=== PATIENT | female | born 1940 | race Caucasian/White ===

== ENCOUNTER → 2016-09-11 | Outpatient (CLI) | payer MEDICARE, OTHER ==
[~2016-09-11] MED LIST: AML5T PO; DIGO0.1262 PO; FUR40T PO; FUROSEMIDE 100 MG/10ML VIAL IV ONE; FUROSEMIDE 40 MG/4 ML VIAL ONE; HYDR-2601 PO; LEV50T PO; METO-158 PO; POT20T PO; POTASSIUM CHL 20 Meq TABLET PO ONE; RIV20T PO
[2016-09-11 10:55] VITALS: BP 144/48
[2016-09-11 16:36] LABS: Basophils # (auto) 0 uL; Basophils % (auto) 0.7 % (0.0-2.0); Eosinophils # (auto) 0.1 uL; Eosinophils % (auto) 1.5 % (0.0-7.0); Hematocrit 48.7 % (36.0-46.0); Lymphocytes # (auto) 1.4 uL; Mean Corpuscular Hemoglobin 33.2 pg (28.0-32.0); Mean Corpuscular Hgb Conc. 32.8 g/dL (32.0-36.0); Mean Corpuscular Volume 101.3 fL (80.0-100.0); Mean Platelet Volume 9.8 fL (7.4-10.4); Monocytes # (auto) 0.4 uL; Monocytes % (auto) 11.6 % (0.0-12.0); Neutrophils # (auto) 1.9 uL; Neutrophils % (auto) 49.2 % (37.0-80.0); Platelet Count (auto) 188 10^3/uL (140-450); Red Cell Distribution Width 15.4 % (11.6-16.0); White Blood Cell 3.8 10^3/uL (4.4-10.8)
[2016-09-11 16:54] LABS: BUN/Creatinine Ratio 20.6; Calcium 9.2 mg/dL (8.5-10.1); Potassium 3.5 mmol/L (3.5-5.1)
[2016-09-11 16:56] LABS: Bilirubin, Total 1.8 mg/dL (0.2-1.0); Total Protein 7.7 g/dL (6.4-8.2)
== END | disposition home or self-care (01) ==
LOC: CHF HDHVI 10:58
PROVIDERS: ATTEND Internal Medicine Cardiovascular Disease
DX: I10 Essential (primary) hypertension (principal); D64.9 Anemia, unspecified; R89.9 Unspecified abnormal finding in specimens from other organs, systems and tissues
CPT/HCPCS: 36415; 80053; 85025; 87205; 96374; G0463

== ENCOUNTER → 2016-09-17 | Outpatient (CLI) | payer MEDICARE ==
[~2016-09-17] MED LIST changes: -FUROSEMIDE 100 MG/10ML VIAL IV ONE; -FUROSEMIDE 40 MG/4 ML VIAL ONE; -POTASSIUM CHL 20 Meq TABLET PO ONE
== END | disposition home or self-care (01) ==
LOC: HDHVI->DVH 09:38
PROVIDERS: ATTEND Internal Medicine Cardiovascular Disease
DX: I73.9 Peripheral vascular disease, unspecified (principal); Z95.9 Presence of cardiac and vascular implant and graft, unspecified
CPT/HCPCS: 93926

== ENCOUNTER → 2016-09-17 | Outpatient (CLI) | payer MEDICARE | END | disposition home or self-care (01) | LOC: Rad HDHVI 10:33 | PROVIDERS: ATTEND Internal Medicine Cardiovascular Disease | DX: I51.7 Cardiomegaly (principal); I31.3 Pericardial effusion (noninflammatory); I25.10 Atherosclerotic heart disease of native coronary artery without angina pectoris; I10 Essential (primary) hypertension; J98.4 Other disorders of lung; Z95.0 Presence of cardiac pacemaker; Z86.718 Personal history of other venous thrombosis and embolism | CPT/HCPCS: 93306 ==

== ENCOUNTER 2016-09-19 16:43 | Observation (INO) | payer MEDICARE ==
[~2016-09-19] VITALS: Ht 167.6 cm; Wt 59.4 kg
[2016-09-19 17:46] LABS: Basophils # (auto) 0 uL; Basophils % (auto) 0.8 % (0.0-2.0); Eosinophils # (auto) 0 uL; Eosinophils % (auto) 0.8 % (0.0-7.0); Hematocrit 47.9 % (36.0-46.0); Hemoglobin 15.7 g/dL (12.2-16.2); Lymphocytes # (auto) 1.3 uL; Lymphocytes % (auto) 28.2 % (10.0-50.0); Mean Corpuscular Hemoglobin 32.9 pg (28.0-32.0); Mean Corpuscular Hgb Conc. 32.8 g/dL (32.0-36.0); Mean Corpuscular Volume 100.2 fL (80.0-100.0); Monocytes # (auto) 0.6 uL; Monocytes % (auto) 13.6 % (0.0-12.0); Neutrophils # (auto) 2.6 uL; Neutrophils % (auto) 56.6 % (37.0-80.0); Platelet Count (auto) 209 10^3/uL (140-450); White Blood Cell 4.5 10^3/uL (4.4-10.8)
[2016-09-19 18:07] LABS: Albumin 3.7 g/dL (3.4-5.0); BUN/Creatinine Ratio 18.4; Bilirubin, Total 1.8 mg/dL (0.2-1.0); Calcium 8.9 mg/dL (8.5-10.1); Magnesium 2.2 mg/dL (1.6-2.6); Potassium 3.6 mmol/L (3.5-5.1); Total Protein 7.3 g/dL (6.4-8.2)
[2016-09-19 18:17] LABS: INR 1.3 (0.9-1.15)
[2016-09-19 18:30] VITALS: BP 146/85
[2016-09-19] MEDS ORDERED: LIDOCAINE HCL 2 %PF INJ 10ML AMP IJ ONE (19:15)
[2016-09-19] MEDS ORDERED: LIDOCAINE 1% HCL (LOCAL ANESTH.) INJ 20ML MDV ONE (19:25)
[2016-09-19] MEDS ORDERED: LIDOCAINE 1% HCL (LOCAL ANESTH.) INJ 20ML MDV IJ ONE (19:30)
== END 2016-09-19 20:45 | disposition home or self-care (01) | DRG 301 ==
LOC: ER 16:44 → OVERFLOW 17:22 → ER 20:45
PROVIDERS: ADMIT Family Medicine; ATTEND Family Medicine
DX: I83.91 Asymptomatic varicose veins of right lower extremity (principal); I10 Essential (primary) hypertension; I48.91 Unspecified atrial fibrillation
CPT/HCPCS: 36415; 80053; 83735; 85025; 85610; 85730; 99285; G0378; J2001

== ENCOUNTER → 2016-10-21 | Outpatient (CLI) | payer MEDICARE ==
[2016-10-21 11:00] VITALS: BP 147/89
== END | disposition home or self-care (01) ==
LOC: CHF HDHVI 12:13
PROVIDERS: ATTEND Internal Medicine Cardiovascular Disease
DX: R89.9 Unspecified abnormal finding in specimens from other organs, systems and tissues (principal)
CPT/HCPCS: 87205; G0463

== ENCOUNTER → 2016-10-31 | Outpatient (CLI) | payer MEDICARE ==
[2016-10-31 10:00] VITALS: BP 133/82
[2016-10-31 11:30] VITALS: BP 130/88
== END | disposition home or self-care (01) ==
LOC: CHF HDHVI 09:54
PROVIDERS: ATTEND Internal Medicine Cardiovascular Disease
DX: I87.2 Venous insufficiency (chronic) (peripheral) (principal); I50.9 Heart failure, unspecified; I25.10 Atherosclerotic heart disease of native coronary artery without angina pectoris; I70.213 Atherosclerosis of native arteries of extremities with intermittent claudication, bilateral legs; L97.819 Non-pressure chronic ulcer of other part of right lower leg with unspecified severity
CPT/HCPCS: G0463

== ENCOUNTER → 2016-11-07 | Outpatient (CLI) | payer MEDICARE ==
[~2016-11-07] MED LIST changes: +FUROSEMIDE 40 MG/4 ML VIAL IV ONE; +FUROSEMIDE 40 MG/4 ML VIAL ONE; +KETOROLAC TROMETH 60MG/2ML VIAL IM ONE; +POTASSIUM CHL 10 Meq TABLET PO ONE; +POTASSIUM CHL 20 Meq TABLET PO ONE
[2016-11-07 10:00] VITALS: BP 156/98
[2016-11-07 16:30] LABS: BUN/Creatinine Ratio 23.1; Calcium 9.1 mg/dL (8.5-10.1); Magnesium 2.1 mg/dL (1.6-2.6); Potassium 3.8 mmol/L (3.5-5.1)
[2016-11-07 16:48] LABS: Basophils # (auto) 0 uL; Basophils % (auto) 0.7 % (0.0-2.0); Eosinophils # (auto) 0.1 uL; Hemoglobin 16.9 g/dL (12.2-16.2); Lymphocytes % (auto) 19.7 % (10.0-50.0); Mean Corpuscular Hemoglobin 33.4 pg (28.0-32.0); Mean Corpuscular Hgb Conc. 33.8 g/dL (32.0-36.0); Mean Corpuscular Volume 98.7 fL (80.0-100.0); Monocytes # (auto) 0.6 uL; Monocytes % (auto) 11.9 % (0.0-12.0); Neutrophils # (auto) 3.5 uL; Neutrophils % (auto) 66.7 % (37.0-80.0); Platelet Count (auto) 259 10^3/uL (140-450); Red Cell Distribution Width 14.5 % (11.6-16.0); SUSPECT VIEW TRANSMISSION; White Blood Cell 5.3 10^3/uL (4.4-10.8)
== END | disposition home or self-care (01) ==
LOC: CHF HDHVI 10:04
PROVIDERS: ATTEND Internal Medicine Cardiovascular Disease
DX: I10 Essential (primary) hypertension (principal); D64.9 Anemia, unspecified; E83.42 Hypomagnesemia; R89.9 Unspecified abnormal finding in specimens from other organs, systems and tissues
CPT/HCPCS: 36415; 80048; 83735; 85025; 87205; 96372; 96374; G0463; J1885

== ENCOUNTER → 2016-11-08 | Outpatient (CLI) | payer MEDICARE ==
[~2016-11-08] MED LIST changes: -FUROSEMIDE 40 MG/4 ML VIAL IV ONE; -FUROSEMIDE 40 MG/4 ML VIAL ONE; -KETOROLAC TROMETH 60MG/2ML VIAL IM ONE; -POTASSIUM CHL 10 Meq TABLET PO ONE; -POTASSIUM CHL 20 Meq TABLET PO ONE
[2016-11-08 12:00] VITALS: BP 144/98
[2016-11-08 13:10] VITALS: BP 144/98
== END | disposition home or self-care (01) ==
LOC: CHF HDHVI 11:18
PROVIDERS: ATTEND Internal Medicine Cardiovascular Disease
DX: I50.9 Heart failure, unspecified (principal); L97.919 Non-pressure chronic ulcer of unspecified part of right lower leg with unspecified severity
CPT/HCPCS: G0463

== ENCOUNTER → 2016-11-11 | Outpatient (CLI) | payer MEDICARE ==
[~2016-11-11] MED LIST changes: +KETOROLAC TROMETH 60MG/2ML VIAL IM ONE; +VANCOMYCIN 1GM/250ML D5W 250 ML IV ONE
[2016-11-11 11:00] VITALS: BP 146/83
[2016-11-11 12:59] LABS: BUN/Creatinine Ratio 22.6; Calcium 9.1 mg/dL (8.5-10.1)
[2016-11-11 13:01] LABS: Partial Thromboplastin Time 28.2 sec (22.64-33.71)
[2016-11-11 13:04] LABS: Basophils # (auto) 0 uL; Basophils % (auto) 0.5 % (0.0-2.0); Eosinophils # (auto) 0 uL; Eosinophils % (auto) 0.5 % (0.0-7.0); Hematocrit 47.3 % (36.0-46.0); Hemoglobin 15.7 g/dL (12.2-16.2); Mean Corpuscular Hemoglobin 32.5 pg (28.0-32.0); Mean Corpuscular Hgb Conc. 33.1 g/dL (32.0-36.0); Mean Corpuscular Volume 97.9 fL (80.0-100.0); Mean Platelet Volume 9.5 fL (7.4-10.4); Monocytes # (auto) 0.7 uL; Monocytes % (auto) 12.2 % (0.0-12.0); Neutrophils # (auto) 4.3 uL; Neutrophils % (auto) 69.8 % (37.0-80.0); Platelet Count (auto) 262 10^3/uL (140-450); Red Cell Distribution Width 14.4 % (11.6-16.0); White Blood Cell 6.1 10^3/uL (4.4-10.8)
[2016-11-11 14:09] LABS: INR 1.02 (0.9-1.15); Prothrombin Time 11.1 sec (9.37-12.3)
== END | disposition home or self-care (01) ==
LOC: Rad HDHVI 08:37
PROVIDERS: ATTEND Internal Medicine Cardiovascular Disease
DX: I10 Essential (primary) hypertension (principal); D64.9 Anemia, unspecified; R79.1 Abnormal coagulation profile; Z01.812 Encounter for preprocedural laboratory examination
CPT/HCPCS: 36415; 71020; 80048; 85025; 85610; 85730; 93005; 96365; G0463; J1885

== ENCOUNTER 2016-11-14 07:01 | Day surgery (SDC) | payer MEDICARE ==
[~2016-11-14] VITALS: Ht 167.6 cm; Wt 57.2 kg
[~2016-11-14 07:01] MED LIST changes: -KETOROLAC TROMETH 60MG/2ML VIAL IM ONE; -VANCOMYCIN 1GM/250ML D5W 250 ML IV ONE
[2016-11-14] MEDS ORDERED: VANCOMYCIN PER PHARMACY 0 MG IV ONE (07:45)
[2016-11-14] MEDS ORDERED: VANCOMYCIN HCL 1000 MG VL IR ONE (07:45)
[2016-11-14] MEDS ORDERED: ceFAZolin 1GM/50ML D5W 50 ML IV ONE (07:45)
[2016-11-14] MEDS ORDERED: fentaNYL CITRATE 100 MCG/2 ML VL ONE (07:55)
[2016-11-14] MEDS ORDERED: LIDOCAINE 2%HCL (LOCAL ANESTH.) INJ 20ML MDV ONE ×2 (07:55→08:38)
[2016-11-14] MEDS ORDERED: MIDAZOLAM HCL 1MG/1ML-2 ML VIAL ONE (07:55)
[2016-11-14] MEDS ORDERED: VANCOMYCIN 1GM/250ML D5W 250 ML IV ONE (09:00)
== END 2016-11-14 11:35 | disposition home or self-care (01) ==
LOC: CATH 07:01
PROVIDERS: ATTEND Internal Medicine Cardiovascular Disease
DX: I48.91 Unspecified atrial fibrillation (principal); J44.9 Chronic obstructive pulmonary disease, unspecified; I73.9 Peripheral vascular disease, unspecified; F10.99 Alcohol use, unspecified with unspecified alcohol-induced disorder; F17.200 Nicotine dependence, unspecified, uncomplicated; B19.10 Unspecified viral hepatitis B without hepatic coma; Z12.4 Encounter for screening for malignant neoplasm of cervix
CPT/HCPCS: 33228; J0690; J2250

== ENCOUNTER 2016-11-15 16:31 | Emergency (ER) | payer MEDICARE ==
[~2016-11-15] VITALS: Ht 167.6 cm; Wt 57.2 kg
[2016-11-15 17:11] LABS: Basophils # (auto) 0 uL; Basophils % (auto) 0.4 % (0.0-2.0); Eosinophils # (auto) 0 uL; Eosinophils % (auto) 0.1 % (0.0-7.0); Hematocrit 46.4 % (36.0-46.0); Hemoglobin 15.4 g/dL (12.2-16.2); Lymphocytes # (auto) 0.6 uL; Lymphocytes % (auto) 9.4 % (10.0-50.0); Mean Corpuscular Hemoglobin 32.2 pg (28.0-32.0); Mean Corpuscular Hgb Conc. 33.3 g/dL (32.0-36.0); Mean Corpuscular Volume 96.7 fL (80.0-100.0); Mean Platelet Volume 8.3 fL (7.4-10.4); Monocytes # (auto) 0.6 uL; Monocytes % (auto) 8.7 % (0.0-12.0); Neutrophils # (auto) 5.6 uL; Neutrophils % (auto) 81.4 % (37.0-80.0); Platelet Count (auto) 280 10^3/uL (140-450); Red Cell Distribution Width 14.3 % (11.6-16.0); White Blood Cell 6.9 10^3/uL (4.4-10.8)
[2016-11-15 17:37] LABS: Albumin 3.2 g/dL (3.4-5.0); Alkaline Phosphatase 106 U/L (45-117); Anion Gap 9 (5-15); Aspartate Aminotransferase 18 U/L (15-37); BUN/Creatinine Ratio 28.8; Bilirubin, Total 0.9 mg/dL (0.2-1.0); Blood Urea Nitrogen 23 mg/dL (7-18); Calcium 8.7 mg/dL (8.5-10.1); Carbon Dioxide 25 mmol/L (21-32); Chloride 103 mmol/L (98-107); GFR African American 90 mL/min; GFR Non-African American 74 mL/min; Glucose 106 mg/dL (74-106); Potassium 3.7 mmol/L (3.5-5.1); Sodium 137 mmol/L (136-145); Total Protein 7.7 g/dL (6.4-8.2)
[2016-11-15] MEDS ORDERED: CLOPIDOGREL BISULFATE 75 MG TAB PO ONE (20:00)
[2016-11-15 20:19] VITALS: BP 120/76
== END 2016-11-15 20:25 | disposition home or self-care (01) ==
LOC: ER 16:35
DX: I73.9 Peripheral vascular disease, unspecified (principal); I48.2 Chronic atrial fibrillation; I10 Essential (primary) hypertension; E07.89 Other specified disorders of thyroid; Z95.0 Presence of cardiac pacemaker; Z79.01 Long term (current) use of anticoagulants; Z98.61 Coronary angioplasty status
CPT/HCPCS: 36415; 70450; 80053; 84484; 85025; 85379; 93005; 93971

== ENCOUNTER 2016-11-21 08:10 | Day surgery (SDC) | payer MEDICARE ==
[~2016-11-21] VITALS: Ht 167.6 cm; Wt 57.2 kg
[2016-11-21] MEDS ORDERED: LIDOCAINE 2%HCL (LOCAL ANESTH.) INJ 20ML MDV ONE (08:55)
[2016-11-21] MEDS ORDERED: IOHEXOL 350 MG/ML 100ML IJ ONE (08:55)
[2016-11-21] MEDS ORDERED: MIDAZOLAM HCL 1MG/1ML-2 ML VIAL ONE (09:14)
[2016-11-21] MEDS ORDERED: fentaNYL CITRATE 100 MCG/2 ML VL ONE (09:14)
[2016-11-21] MEDS ORDERED: ANGIOMAX 250 MG VIAL IV ONE (09:14)
[2016-11-21] MEDS ORDERED: SODIUM CHL 0.9% 0 ML ONE (09:14)
[2016-11-21] MEDS ORDERED: SODIUM CHLORIDE 0.9% 1,000 ML IV SCH (10:19)
[2016-11-21] MEDS ORDERED: ACETAMINOPHEN 500 MG TAB PO PRN (10:30)
[2016-11-21] MEDS ORDERED: HYDROcodone-ACET 5/325MG TAB PO PRN (10:30)
== END 2016-11-21 11:35 | disposition home or self-care (01) ==
LOC: CATH 08:10
PROVIDERS: ATTEND Internal Medicine Cardiovascular Disease
DX: I48.91 Unspecified atrial fibrillation (principal); J44.9 Chronic obstructive pulmonary disease, unspecified; F17.200 Nicotine dependence, unspecified, uncomplicated; F10.99 Alcohol use, unspecified with unspecified alcohol-induced disorder
CPT/HCPCS: 36247; 75716; C1760; C1769; C1887; C1894; J1644; J2250; J3010; J7030; Q9967; 99152

== ENCOUNTER → 2016-11-26 | Outpatient (CLI) | payer MEDICARE ==
[2016-11-26 11:00] VITALS: BP 168/72
[2016-11-26 12:10] VITALS: BP 151/76
== END | disposition home or self-care (01) ==
LOC: CHF HDHVI 10:30
PROVIDERS: ATTEND Internal Medicine Cardiovascular Disease
DX: I83.018 Varicose veins of right lower extremity with ulcer other part of lower leg (principal)
CPT/HCPCS: G0463

== ENCOUNTER → 2016-12-04 | Outpatient (CLI) | payer MEDICARE ==
[2016-12-04 10:30] VITALS: BP 144/88
[2016-12-04 11:15] VITALS: BP 142/93
== END | disposition home or self-care (01) ==
LOC: CHF HDHVI 10:33
PROVIDERS: ATTEND Internal Medicine Cardiovascular Disease
DX: S81.801A Unspecified open wound, right lower leg, initial encounter (principal); I11.0 Hypertensive heart disease with heart failure; I50.9 Heart failure, unspecified; I73.9 Peripheral vascular disease, unspecified; I25.10 Atherosclerotic heart disease of native coronary artery without angina pectoris; X58.XXXA Exposure to other specified factors, initial encounter; Y93.89 Activity, other specified; Y92.89 Other specified places as the place of occurrence of the external cause; Y99.8 Other external cause status
CPT/HCPCS: G0463

== ENCOUNTER → 2016-12-12 | Outpatient (CLI) | payer MEDICARE ==
[~2016-12-12] MED LIST changes: +KETOROLAC TROMETH 60MG/2ML VIAL IM ONE
[2016-12-12 10:15] VITALS: BP 125/79
[2016-12-12 12:00] VITALS: BP 122/71
[2016-12-12 16:41] LABS: BUN/Creatinine Ratio 29.4; Potassium 4.4 mmol/L (3.5-5.1)
== END | disposition home or self-care (01) ==
LOC: CHF HDHVI 10:26
PROVIDERS: ATTEND Internal Medicine Cardiovascular Disease
DX: I73.9 Peripheral vascular disease, unspecified (principal); I83.002 Varicose veins of unspecified lower extremity with ulcer of calf; I10 Essential (primary) hypertension
CPT/HCPCS: 36415; 80048; 96372; G0463; J1885

== ENCOUNTER → 2016-12-19 | Outpatient (CLI) | payer MEDICARE ==
[2016-12-19 10:30] VITALS: BP 143/89
[2016-12-19 12:20] VITALS: BP 159/94
== END | disposition home or self-care (01) ==
LOC: CHF HDHVI 10:29
PROVIDERS: ATTEND Internal Medicine Cardiovascular Disease
DX: I83.018 Varicose veins of right lower extremity with ulcer other part of lower leg (principal); R89.9 Unspecified abnormal finding in specimens from other organs, systems and tissues
CPT/HCPCS: 87205; 96372; G0463; J1885

== ENCOUNTER → 2016-12-25 | Outpatient (CLI) | payer MEDICARE ==
[2016-12-25 14:05] VITALS: BP 140/98
[2016-12-25 16:00] VITALS: BP 142/89
== END | disposition home or self-care (01) ==
LOC: CHF HDHVI 14:01
PROVIDERS: ATTEND Internal Medicine Cardiovascular Disease
DX: L97.919 Non-pressure chronic ulcer of unspecified part of right lower leg with unspecified severity (principal); M79.604 Pain in right leg
CPT/HCPCS: 96372; G0463; J1885

== ENCOUNTER → 2016-12-27 | Outpatient (CLI) | payer MEDICARE ==
[2016-12-27 10:15] VITALS: BP 163/97
[2016-12-27 11:35] VITALS: BP 170/95
== END | disposition home or self-care (01) ==
LOC: CHF HDHVI 10:17
PROVIDERS: ATTEND Internal Medicine Cardiovascular Disease
DX: I50.9 Heart failure, unspecified (principal); I83.019 Varicose veins of right lower extremity with ulcer of unspecified site; L97.919 Non-pressure chronic ulcer of unspecified part of right lower leg with unspecified severity
CPT/HCPCS: 96372; G0463; J1885

== ENCOUNTER → 2016-12-30 | Outpatient (CLI) | payer MEDICARE ==
[~2016-12-30] MED LIST changes: -KETOROLAC TROMETH 60MG/2ML VIAL IM ONE
[2016-12-30 10:00] VITALS: BP 128/83
[2016-12-30 10:55] VITALS: BP 128/83
== END | disposition home or self-care (01) ==
LOC: CHF HDHVI 10:03
PROVIDERS: ATTEND Internal Medicine Cardiovascular Disease
DX: I73.9 Peripheral vascular disease, unspecified (principal); I83.018 Varicose veins of right lower extremity with ulcer other part of lower leg; L97.819 Non-pressure chronic ulcer of other part of right lower leg with unspecified severity
CPT/HCPCS: G0463

== ENCOUNTER → 2017-01-01 | Outpatient (CLI) | payer MEDICARE ==
[2017-01-01 11:15] VITALS: BP 116/81
[2017-01-01 12:20] VITALS: BP 144/88
[2017-01-02 09:01] VITALS: BP 116/81
== END | disposition home or self-care (01) ==
LOC: CHF HDHVI 11:17
PROVIDERS: ATTEND Internal Medicine Cardiovascular Disease
DX: I83.019 Varicose veins of right lower extremity with ulcer of unspecified site (principal); L97.919 Non-pressure chronic ulcer of unspecified part of right lower leg with unspecified severity
CPT/HCPCS: G0463

== ENCOUNTER → 2017-04-29 | Outpatient (CLI) | payer MEDICARE ==
[2017-04-29 10:45] VITALS: BP 170/104
[2017-04-29 11:15] VITALS: BP 173/109
[2017-04-29 14:55] VITALS: BP 170/105
== END | disposition home or self-care (01) ==
LOC: CHF HDHVI 10:28
PROVIDERS: ATTEND Internal Medicine Cardiovascular Disease
DX: I73.9 Peripheral vascular disease, unspecified (principal)
CPT/HCPCS: G0463

== ENCOUNTER → 2017-05-13 | Outpatient (CLI) | payer MEDICARE ==
[~2017-05-13] MED LIST changes: +METOPROLOL TARTRATE 25 MG TAB ONE; +METOPROLOL TARTRATE 25 MG TAB PO ONE
[2017-05-13 11:15] VITALS: BP 171/112
[2017-05-13 16:07] VITALS: BP 160/98
== END | disposition home or self-care (01) ==
LOC: Rad HDHVI 10:05
PROVIDERS: ATTEND Internal Medicine Cardiovascular Disease
DX: I73.9 Peripheral vascular disease, unspecified (principal); I83.018 Varicose veins of right lower extremity with ulcer other part of lower leg; I83.028 Varicose veins of left lower extremity with ulcer other part of lower leg; L97.819 Non-pressure chronic ulcer of other part of right lower leg with unspecified severity; L97.829 Non-pressure chronic ulcer of other part of left lower leg with unspecified severity
CPT/HCPCS: 93926; G0463

== ENCOUNTER → 2017-09-10 | Outpatient (CLI) | payer MEDICARE ==
[~2017-09-10] MED LIST changes: +CYANOCOBALAMIN (B-12) 1000 MCG/1 ML VIAL IM ONE; +CYANOCOBALAMIN (B-12) 1000 MCG/1 ML VIAL ONE; +KETOROLAC TROMETH 60MG/2ML VIAL IM ONE; -METOPROLOL TARTRATE 25 MG TAB ONE; -METOPROLOL TARTRATE 25 MG TAB PO ONE
[2017-09-10 11:00] VITALS: BP 132/94
[2017-09-10 11:55] VITALS: BP 138/89
== END | disposition home or self-care (01) ==
LOC: CHF HDHVI 10:41
PROVIDERS: ATTEND Internal Medicine Cardiovascular Disease
DX: R89.9 Unspecified abnormal finding in specimens from other organs, systems and tissues (principal)
CPT/HCPCS: 87205; 96372; G0463; J1885; J3420; 87077; 87186

== ENCOUNTER 2017-09-15 13:38 | Emergency (ER) | payer MEDICARE ==
[~2017-09-15] VITALS: Ht 167.6 cm; Wt 59.0 kg
[~2017-09-15 13:38] MED LIST changes: -CYANOCOBALAMIN (B-12) 1000 MCG/1 ML VIAL IM ONE; -CYANOCOBALAMIN (B-12) 1000 MCG/1 ML VIAL ONE; -KETOROLAC TROMETH 60MG/2ML VIAL IM ONE
[2017-09-15 14:00] VITALS: BP 184/109
[2017-09-15 16:01] LABS: Albumin 3.6 g/dL (3.4-5.0); BUN/Creatinine Ratio 23.2; Bilirubin, Total 2.2 mg/dL (0.2-1.0); Calcium 8.9 mg/dL (8.5-10.1); Potassium 3.9 mmol/L (3.5-5.1); Total Protein 7.3 g/dL (6.4-8.2)
[2017-09-15 17:10] LABS: Urine Bacteria NONE SEEN /hpf (None Seen); Urine Blood Negative /uL (Negative); Urine Mucus FEW (None Seen); Urine Specific Gravity 1.019 (1.001-1.035); Urine WBC 1 /hpf (0 - 5)
== END 2017-09-15 16:30 | disposition home or self-care (01) ==
LOC: ER 13:38
DX: I83.893 Varicose veins of bilateral lower extremities with other complications (principal); I48.91 Unspecified atrial fibrillation; I10 Essential (primary) hypertension
CPT/HCPCS: 36415; 80053; 81001; 93970

== ENCOUNTER → 2017-09-17 | Outpatient (CLI) | payer MEDICARE ==
[~2017-09-17] MED LIST changes: +KETOROLAC TROMETH 60MG/2ML VIAL IM ONE; +cefTAZidime 1 GM in SODIUM CHL 0.9% 50 ML IV ONE
[2017-09-17 09:30] VITALS: BP 106/52
[2017-09-17 10:15] VITALS: BP 112/53
== END | disposition home or self-care (01) ==
LOC: CHF HDHVI 10:01
PROVIDERS: ATTEND Internal Medicine Cardiovascular Disease
DX: I83.013 Varicose veins of right lower extremity with ulcer of ankle (principal); L97.319 Non-pressure chronic ulcer of right ankle with unspecified severity
CPT/HCPCS: 96365; 96372; G0463; J0713; J1642; J1885

== ENCOUNTER → 2017-09-18 | Outpatient (CLI) | payer MEDICARE ==
[~2017-09-18] MED LIST changes: +CEFTAZIDIME IV ONE; +D5W IV ONE; -KETOROLAC TROMETH 60MG/2ML VIAL IM ONE; +cefTAZidime 1GM/50ML D5W 50 ML IV ONE
[2017-09-18 10:40] VITALS: BP 148/100
[2017-09-18 11:22] VITALS: BP 139/102
== END | disposition home or self-care (01) ==
LOC: CHF HDHVI 10:38
PROVIDERS: ATTEND Internal Medicine Cardiovascular Disease
DX: L08.89 Other specified local infections of the skin and subcutaneous tissue (principal)
CPT/HCPCS: 96365; G0463; J0713; J1642

== ENCOUNTER → 2017-09-22 | Outpatient (CLI) | payer MEDICARE ==
[~2017-09-22] MED LIST changes: -CEFTAZIDIME IV ONE; -D5W IV ONE; +KETOROLAC TROMETH 60MG/2ML VIAL IM ONE; -cefTAZidime 1 GM in SODIUM CHL 0.9% 50 ML IV ONE; -cefTAZidime 1GM/50ML D5W 50 ML IV ONE
[2017-09-22 12:20] VITALS: BP 179/104
[2017-09-22 13:55] VITALS: BP 164/103
== END | disposition home or self-care (01) ==
LOC: CHF HDHVI 12:25
PROVIDERS: ATTEND Internal Medicine Cardiovascular Disease
DX: I83.023 Varicose veins of left lower extremity with ulcer of ankle (principal)
CPT/HCPCS: 96372; G0463; J1885; J0713

== ENCOUNTER → 2017-09-29 | Outpatient (CLI) | payer MEDICARE ==
[~2017-09-29] MED LIST changes: +CYANOCOBALAMIN (B-12) 1000 MCG/1 ML VIAL IM ONE
[2017-09-29 13:05] VITALS: BP 144/61
[2017-09-29 14:05] VITALS: BP 146/91
== END | disposition home or self-care (01) ==
LOC: CHF HDHVI 13:04
PROVIDERS: ATTEND Internal Medicine Cardiovascular Disease
DX: M25.562 Pain in left knee (principal); R89.9 Unspecified abnormal finding in specimens from other organs, systems and tissues; M79.89 Other specified soft tissue disorders; I70.202 Unspecified atherosclerosis of native arteries of extremities, left leg; M81.0 Age-related osteoporosis without current pathological fracture; M21.6X2 Other acquired deformities of left foot
CPT/HCPCS: 73562; 73610; 87205; 96372; G0463; J1885

== ENCOUNTER → 2017-09-30 | Outpatient (CLI) | payer MEDICARE ==
[~2017-09-30] MED LIST changes: -CYANOCOBALAMIN (B-12) 1000 MCG/1 ML VIAL IM ONE; -KETOROLAC TROMETH 60MG/2ML VIAL IM ONE
== END | disposition home or self-care (01) ==
LOC: Rad HDHVI 12:59
PROVIDERS: ATTEND Internal Medicine Cardiovascular Disease
DX: I08.1 Rheumatic disorders of both mitral and tricuspid valves (principal); I11.0 Hypertensive heart disease with heart failure; I50.22 Chronic systolic (congestive) heart failure; Z79.01 Long term (current) use of anticoagulants
CPT/HCPCS: 93306

== ENCOUNTER → 2017-10-06 | Outpatient (CLI) | payer MEDICARE ==
[~2017-10-06] MED LIST changes: +KETOROLAC TROMETH 60MG/2ML VIAL IM ONE
[2017-10-06 12:00] VITALS: BP 135/82
[2017-10-06 13:45] VITALS: BP 165/94
== END | disposition home or self-care (01) ==
LOC: CHF HDHVI 11:59
PROVIDERS: ATTEND Internal Medicine Cardiovascular Disease
DX: L89.529 Pressure ulcer of left ankle, unspecified stage (principal); I10 Essential (primary) hypertension; I11.0 Hypertensive heart disease with heart failure; I50.22 Chronic systolic (congestive) heart failure; Z79.01 Long term (current) use of anticoagulants
CPT/HCPCS: 96372; G0463; J1885

== ENCOUNTER → 2017-10-08 | Outpatient (CLI) | payer MEDICARE ==
[~2017-10-08] VITALS: Ht 167.6 cm; Wt 58.5 kg
[~2017-10-08] MED LIST changes: +ADENOSINE 49 MG in GIVE UN-DILUTED 0 ML IV ONE; +ADENOSINE 90 MG/30 ML INJ IV ONE; +cloNIDine HCL 0.1 MG TAB ONE; +cloNIDine HCL 0.1 MG TAB PO ONE
[2017-10-08 12:40] VITALS: BP 137/104
[2017-10-08 13:30] VITALS: BP 142/96
== END | disposition home or self-care (01) ==
LOC: Rad HDHVI 11:45
PROVIDERS: ATTEND Internal Medicine Cardiovascular Disease
DX: I11.0 Hypertensive heart disease with heart failure (principal); I50.22 Chronic systolic (congestive) heart failure; I73.9 Peripheral vascular disease, unspecified; L97.919 Non-pressure chronic ulcer of unspecified part of right lower leg with unspecified severity; Z79.01 Long term (current) use of anticoagulants
CPT/HCPCS: 78452; 93005; 96372; 96374; 96375; G0463; J0153; J1885

== ENCOUNTER → 2017-10-13 | Outpatient (CLI) | payer MEDICARE ==
[~2017-10-13] MED LIST changes: -ADENOSINE 49 MG in GIVE UN-DILUTED 0 ML IV ONE; -ADENOSINE 90 MG/30 ML INJ IV ONE; -KETOROLAC TROMETH 60MG/2ML VIAL IM ONE; -cloNIDine HCL 0.1 MG TAB ONE; -cloNIDine HCL 0.1 MG TAB PO ONE
[2017-10-13 12:15] VITALS: BP 151/100
[2017-10-13 13:05] VITALS: BP 144/92
== END | disposition home or self-care (01) ==
LOC: CHF HDHVI 13:22
PROVIDERS: ATTEND Internal Medicine Cardiovascular Disease
DX: I11.0 Hypertensive heart disease with heart failure (principal); I50.9 Heart failure, unspecified; L97.519 Non-pressure chronic ulcer of other part of right foot with unspecified severity; R60.0 Localized edema; J44.9 Chronic obstructive pulmonary disease, unspecified; Z79.01 Long term (current) use of anticoagulants
CPT/HCPCS: G0463

== ENCOUNTER → 2017-10-20 | Outpatient (CLI) | payer MEDICARE ==
[~2017-10-20] MED LIST changes: +KETOROLAC TROMETH 60MG/2ML VIAL IM ONE
[2017-10-20 12:00] VITALS: BP 163/104
[2017-10-20 12:55] VITALS: BP 141/104
== END | disposition home or self-care (01) ==
LOC: CHF HDHVI 12:04
PROVIDERS: ATTEND Internal Medicine Cardiovascular Disease
DX: L97.319 Non-pressure chronic ulcer of right ankle with unspecified severity (principal); I25.10 Atherosclerotic heart disease of native coronary artery without angina pectoris; J44.9 Chronic obstructive pulmonary disease, unspecified; I11.0 Hypertensive heart disease with heart failure; I50.22 Chronic systolic (congestive) heart failure; Z79.01 Long term (current) use of anticoagulants
CPT/HCPCS: 96372; G0463; J1885

== ENCOUNTER → 2017-11-03 | Outpatient (CLI) | payer MEDICARE ==
[~2017-11-03] MED LIST changes: -KETOROLAC TROMETH 60MG/2ML VIAL IM ONE
[2017-11-03 12:30] VITALS: BP 149/98
[2017-11-03 13:44] VITALS: BP 148/97
== END | disposition home or self-care (01) ==
LOC: CHF HDHVI 13:19
PROVIDERS: ATTEND Internal Medicine Cardiovascular Disease
DX: I73.9 Peripheral vascular disease, unspecified (principal); I25.10 Atherosclerotic heart disease of native coronary artery without angina pectoris; I11.0 Hypertensive heart disease with heart failure; I50.22 Chronic systolic (congestive) heart failure; G89.29 Other chronic pain; J44.9 Chronic obstructive pulmonary disease, unspecified; Z79.01 Long term (current) use of anticoagulants
CPT/HCPCS: G0463

== ENCOUNTER → 2017-12-01 | Outpatient (CLI) | payer MEDICARE ==
[~2017-12-01] MED LIST changes: +KETOROLAC TROMETH 60MG/2ML VIAL IM ONE
[2017-12-01 11:30] VITALS: BP 158/111
[2017-12-01 12:28] VITALS: BP 164/105
== END | disposition home or self-care (01) ==
LOC: CHF HDHVI 11:35
PROVIDERS: ATTEND Internal Medicine Cardiovascular Disease
DX: L97.319 Non-pressure chronic ulcer of right ankle with unspecified severity (principal); M25.571 Pain in right ankle and joints of right foot; R60.0 Localized edema; I11.0 Hypertensive heart disease with heart failure; I50.22 Chronic systolic (congestive) heart failure; I25.10 Atherosclerotic heart disease of native coronary artery without angina pectoris; G89.29 Other chronic pain; Z79.01 Long term (current) use of anticoagulants; Z86.73 Personal history of transient ischemic attack (TIA), and cerebral infarction without residual deficits
CPT/HCPCS: 96372; G0463; J1885

== ENCOUNTER → 2017-12-08 | Outpatient (CLI) | payer MEDICARE ==
[~2017-12-08] MED LIST changes: -KETOROLAC TROMETH 60MG/2ML VIAL IM ONE
[2017-12-08 12:15] VITALS: BP 150/97
[2017-12-08 12:40] VITALS: BP 154/97
== END | disposition home or self-care (01) ==
LOC: CHF HDHVI 12:27
PROVIDERS: ATTEND Internal Medicine Cardiovascular Disease
DX: R89.9 Unspecified abnormal finding in specimens from other organs, systems and tissues (principal)
CPT/HCPCS: 87205; G0463

== ENCOUNTER → 2017-12-15 | Outpatient (CLI) | payer MEDICARE ==
[2017-12-15 12:25] VITALS: BP 154/115
[2017-12-15 17:26] VITALS: BP 170/102
== END | disposition home or self-care (01) ==
LOC: CHF HDHVI 12:15
PROVIDERS: ATTEND Internal Medicine Cardiovascular Disease
DX: L97.319 Non-pressure chronic ulcer of right ankle with unspecified severity (principal); R60.0 Localized edema; I25.10 Atherosclerotic heart disease of native coronary artery without angina pectoris; I11.0 Hypertensive heart disease with heart failure; I50.22 Chronic systolic (congestive) heart failure; J44.9 Chronic obstructive pulmonary disease, unspecified; E03.9 Hypothyroidism, unspecified
CPT/HCPCS: G0463

== ENCOUNTER → 2017-12-22 | Outpatient (CLI) | payer MEDICARE ==
[2017-12-22 12:05] VITALS: BP 148/95
[2017-12-22 12:35] VITALS: BP 149/90
== END | disposition home or self-care (01) ==
LOC: CHF HDHVI 12:01
PROVIDERS: ATTEND Internal Medicine Cardiovascular Disease
DX: L97.319 Non-pressure chronic ulcer of right ankle with unspecified severity (principal); I11.0 Hypertensive heart disease with heart failure; I50.22 Chronic systolic (congestive) heart failure; R60.0 Localized edema; J44.9 Chronic obstructive pulmonary disease, unspecified; Z79.01 Long term (current) use of anticoagulants
CPT/HCPCS: G0463

== ENCOUNTER → 2018-01-26 | Outpatient (CLI) | payer MEDICARE ==
[2018-01-26 11:30] VITALS: BP 162/103
[2018-01-26 12:06] VITALS: BP 145/90
== END | disposition home or self-care (01) ==
LOC: CHF HDHVI 11:27
PROVIDERS: ATTEND Internal Medicine Cardiovascular Disease
DX: I83.013 Varicose veins of right lower extremity with ulcer of ankle (principal); I10 Essential (primary) hypertension; I48.91 Unspecified atrial fibrillation; E03.9 Hypothyroidism, unspecified; Z79.899 Other long term (current) drug therapy
CPT/HCPCS: G0463

== ENCOUNTER → 2018-02-09 | Outpatient (CLI) | payer MEDICARE ==
[~2018-02-09] MED LIST changes: +KETOROLAC TROMETH 60MG/2ML VIAL IM ONE
[2018-02-09 11:50] VITALS: BP 152/86
[2018-02-09 12:38] VITALS: BP 138/93
== END | disposition home or self-care (01) ==
LOC: CHF HDHVI 11:42
PROVIDERS: ATTEND Internal Medicine Cardiovascular Disease
DX: L98.499 Non-pressure chronic ulcer of skin of other sites with unspecified severity (principal); M25.571 Pain in right ankle and joints of right foot; I11.0 Hypertensive heart disease with heart failure; I50.22 Chronic systolic (congestive) heart failure; I25.10 Atherosclerotic heart disease of native coronary artery without angina pectoris; J44.9 Chronic obstructive pulmonary disease, unspecified; R60.0 Localized edema; Z79.01 Long term (current) use of anticoagulants; Z79.899 Other long term (current) drug therapy
CPT/HCPCS: 96372; G0463; J1885

== ENCOUNTER → 2018-02-16 | Outpatient (CLI) | payer MEDICARE ==
[~2018-02-16] MED LIST changes: -KETOROLAC TROMETH 60MG/2ML VIAL IM ONE
[2018-02-16 11:55] VITALS: BP 152/93
[2018-02-16 12:25] VITALS: BP 147/89
== END | disposition home or self-care (01) ==
LOC: CHF HDHVI 11:54
PROVIDERS: ATTEND Internal Medicine Cardiovascular Disease
DX: I73.9 Peripheral vascular disease, unspecified (principal); I10 Essential (primary) hypertension; I48.91 Unspecified atrial fibrillation
CPT/HCPCS: G0463

== ENCOUNTER → 2018-03-02 | Outpatient (CLI) | payer MEDICARE ==
[~2018-03-02] VITALS: Ht 30.5 cm; Wt 0.5 kg
[~2018-03-02] MED LIST changes: +VANCOMYCIN 1GM/250ML 250 ML IV ONE
[2018-03-02 13:15] VITALS: BP 129/91
== END | disposition home or self-care (01) ==
LOC: CHF HDHVI 11:05
PROVIDERS: ATTEND Internal Medicine Cardiovascular Disease
DX: I83.013 Varicose veins of right lower extremity with ulcer of ankle (principal); L97.311 Non-pressure chronic ulcer of right ankle limited to breakdown of skin; E03.9 Hypothyroidism, unspecified; I11.0 Hypertensive heart disease with heart failure; I50.22 Chronic systolic (congestive) heart failure; I25.10 Atherosclerotic heart disease of native coronary artery without angina pectoris; I73.9 Peripheral vascular disease, unspecified; I48.91 Unspecified atrial fibrillation; J44.9 Chronic obstructive pulmonary disease, unspecified; Z79.01 Long term (current) use of anticoagulants; Z79.899 Other long term (current) drug therapy
CPT/HCPCS: 96365; G0463; J3370

== ENCOUNTER → 2018-03-30 | Outpatient (CLI) | payer MEDICARE ==
[~2018-03-30] MED LIST changes: +FURO40TA4 PO; +KETOROLAC TROMETH 60MG/2ML VIAL IM ONE; +POTA20TA53 PO; -VANCOMYCIN 1GM/250ML 250 ML IV ONE
[2018-03-30 11:45] VITALS: BP 163/104
[2018-03-30 12:20] VITALS: BP 140/96
== END | disposition home or self-care (01) ==
LOC: Rad HDHVI 11:55
PROVIDERS: ATTEND Internal Medicine Cardiovascular Disease
DX: D64.9 Anemia, unspecified (principal); L97.311 Non-pressure chronic ulcer of right ankle limited to breakdown of skin; E03.9 Hypothyroidism, unspecified; I48.91 Unspecified atrial fibrillation; I25.10 Atherosclerotic heart disease of native coronary artery without angina pectoris; I11.0 Hypertensive heart disease with heart failure; I50.22 Chronic systolic (congestive) heart failure; I73.9 Peripheral vascular disease, unspecified; Z79.899 Other long term (current) drug therapy
CPT/HCPCS: 96372; G0463; J1885

== ENCOUNTER 2018-04-06 13:40 | Inpatient (IN) | payer MEDICARE ==
[~2018-04-06] VITALS: Ht 167.6 cm; Wt 70.0 kg
[~2018-04-06 13:40] MED LIST changes: -FURO40TA4 PO; -KETOROLAC TROMETH 60MG/2ML VIAL IM ONE; -POTA20TA53 PO
[2018-04-06] MEDS ORDERED: DOBUTamine 1000MCG/ML 250 ML IV SCH ×2 (16:00)
[2018-04-06 16:30] VITALS: BP 82/59
[2018-04-06] MEDS: SODIUM CHLORIDE 0.9% 1,000 ML IV SCH (16:30)
[2018-04-06] MEDS ORDERED: FURO40TA4 PO (17:17)
[2018-04-06] MEDS ORDERED: POTA20TA53 PO (17:17)
[2018-04-06] MEDS: DOBUTamine 1000MCG/ML 250 ML IV SCH (18:25)
[2018-04-06] MEDS: RIVAROXABAN 20 MG TAB PO SCH (18:26)
[2018-04-06 18:34] LABS: Urine Bacteria NONE SEEN /hpf (None Seen); Urine Blood Negative /uL (Negative); Urine Specific Gravity 1.015 (1.001-1.035); Urine WBC 2 /hpf (0 - 5)
[2018-04-06] MEDS ORDERED: PIPERACILLIN-TAZOB 2.25GM 50 ML IV ONE (18:45)
[2018-04-06 21:37] VITALS: BP 116/68
[2018-04-06] MEDS: METOPROLOL SUCCINATE XL 50 MG TAB PO SCH (21:46)
[2018-04-06] MEDS: PIPERACILLIN-TAZO 4.5GM 100 ML IV SCH (21:47)
[2018-04-06] MEDS: HYDROcodone-ACET 10/325MG TAB PO PRN (21:47)
[2018-04-06] MEDS ORDERED: PIPERACILLIN-TAZO 4.5GM 100 ML IV SCH (22:00)
[2018-04-07] MEDS ORDERED: PIPERACILLIN-TAZOB 2.25GM 50 ML IV SCH
[2018-04-07 05:00] VITALS: BP 135/72
[2018-04-07] MEDS: PIPERACILLIN-TAZO 4.5GM 100 ML IV SCH ×3 (05:51→21:54)
[2018-04-07 06:17] LABS: Basophils # (auto) 0 uL; Monocytes # (auto) 0.9 uL; Nucleated Red Blood Cells % 0.1 %; Platelet Count (auto) 91 10^3/uL (140-450); Red Cell Distribution Width 14.9 % (11.8-14.3)
[2018-04-07 06:20] LABS: Eosinophils # (auto) 0.1 uL; Eosinophils % (auto) 0.5 % (0.0-7.0); Hematocrit 48.9 % (36.0-46.0); Hemoglobin 16.8 g/dL (12.2-16.2); Lymphocytes # (auto) 0.5 uL; Lymphocytes % (auto) 4.6 % (10.0-50.0); Mean Corpuscular Hemoglobin 34.3 pg (28.0-32.0); Mean Corpuscular Hgb Conc. 34.3 g/dL (32.0-36.0); Monocytes % (auto) 9.2 % (0.0-12.0); Neutrophils # (auto) 8.6 uL; Neutrophils % (auto) 85.7 % (37.0-80.0); Red Blood Cells 4.89 10^6/uL (4.0-5.20); White Blood Cell 10.1 10^3/uL (4.4-10.8)
[2018-04-07 06:40] LABS: Calcium 7.8 mg/dL (8.5-10.1); Potassium 4.3 mmol/L (3.5-5.1)
[2018-04-07 06:42] LABS: BUN/Creatinine Ratio 54.8
[2018-04-07] MEDS: LEVOTHYROXINE SODIUM 50 MCG TAB PO SCH (06:43)
[2018-04-07] MEDS: DOBUTamine 1000MCG/ML 250 ML IV SCH ×2 (06:47→20:15)
[2018-04-07 09:00] VITALS: BP 128/56
[2018-04-07] MEDS: METOPROLOL SUCCINATE XL 50 MG TAB PO SCH ×2 (10:30→21:54)
[2018-04-07] MEDS: DIGOXIN 0.125 MG TAB PO SCH (10:30)
[2018-04-07] MEDS: HYDROcodone-ACET 10/325MG TAB PO PRN ×2 (10:31→16:38)
[2018-04-07] MEDS: SODIUM CHLORIDE 0.9% 1,000 ML IV SCH (12:00)
[2018-04-07 13:00] VITALS: BP 129/70
[2018-04-07] MEDS: RIVAROXABAN 20 MG TAB PO SCH (17:11)
[2018-04-07 17:22] VITALS: BP 96/71
[2018-04-07 22:00] VITALS: BP 94/72
[2018-04-07] MEDS ORDERED: HALOPERIDOL LACTATE 5 MG/ML INJ VIAL IM ONE (23:30)
[2018-04-08] MEDS ORDERED: PIPERACILLIN-TAZO 4.5GM 100 ML IV ONE (03:12)
[2018-04-08 05:00] VITALS: BP 114/68
[2018-04-08] MEDS: PIPERACILLIN-TAZO 4.5GM 100 ML IV SCH ×3 (05:39→21:45)
[2018-04-08] MEDS: LEVOTHYROXINE SODIUM 50 MCG TAB PO SCH (06:33)
[2018-04-08 07:44] LABS: Urine Bacteria MOD /hpf (None Seen); Urine Blood 3+ /uL (Negative); Urine WBC 408 /hpf (0 - 5)
[2018-04-08] MEDS: SODIUM CHLORIDE 0.9% 1,000 ML IV SCH (08:00)
[2018-04-08 08:10] LABS: Basophils # (auto) 0 uL; Basophils % (auto) 0.1 % (0.0-2.0); Eosinophils # (auto) 0 uL; Eosinophils % (auto) 0.4 % (0.0-7.0); Hematocrit 47.6 % (36.0-46.0); Hemoglobin 15.8 g/dL (12.2-16.2); Lymphocytes # (auto) 0.5 uL; Lymphocytes % (auto) 4.5 % (10.0-50.0); Mean Corpuscular Hemoglobin 33.1 pg (28.0-32.0); Mean Corpuscular Hgb Conc. 33.2 g/dL (32.0-36.0); Mean Corpuscular Volume 99.7 fL (80.0-100.0); Monocytes # (auto) 0.9 uL; Monocytes % (auto) 8.3 % (0.0-12.0); Neutrophils % (auto) 86.7 % (37.0-80.0); Nucleated Red Blood Cells % 0.1 %; Platelet Count (auto) 101 10^3/uL (140-450); Red Blood Cells 4.78 10^6/uL (4.0-5.20); Red Cell Distribution Width 14.9 % (11.8-14.3); White Blood Cell 10.4 10^3/uL (4.4-10.8)
[2018-04-08 08:35] LABS: Albumin 2.3 g/dL (3.4-5.0); Calcium 7.8 mg/dL (8.5-10.1); Potassium 4.5 mmol/L (3.5-5.1)
[2018-04-08 08:39] LABS: BUN/Creatinine Ratio 43.5; Bilirubin, Total 2.7 mg/dL (0.2-1.0); Total Protein 5.7 g/dL (6.4-8.2)
[2018-04-08 09:00] VITALS: BP 116/72
[2018-04-08] MEDS: DIGOXIN 0.125 MG TAB PO SCH (10:31)
[2018-04-08] MEDS: METOPROLOL SUCCINATE XL 50 MG TAB PO SCH ×2 (10:31→21:45)
[2018-04-08] MEDS: DOBUTamine 1000MCG/ML 250 ML IV SCH (10:34)
[2018-04-08 13:00] VITALS: BP 131/59
[2018-04-08] MEDS: HYDROcodone-ACET 10/325MG TAB PO PRN (13:13)
[2018-04-08 16:53] VITALS: BP 94/63
[2018-04-08] MEDS: RIVAROXABAN 20 MG TAB PO SCH (18:00)
[2018-04-08 20:00] VITALS: BP 108/67
[2018-04-08 22:00] VITALS: BP 144/95
[2018-04-09] MEDS: DOBUTamine 1000MCG/ML 250 ML IV SCH ×2 (01:19→16:09)
[2018-04-09] MEDS: SODIUM CHLORIDE 0.9% 1,000 ML IV SCH (02:58)
[2018-04-09 05:00] VITALS: BP 137/74
[2018-04-09] MEDS: LEVOTHYROXINE SODIUM 50 MCG TAB PO SCH (06:34)
[2018-04-09] MEDS: PIPERACILLIN-TAZO 4.5GM 100 ML IV SCH ×3 (06:34→21:22)
[2018-04-09 09:00] VITALS: BP 139/75
[2018-04-09] MEDS: MULTIPLE VITAMINS W/ MINERALS TAB PO SCH ×2 (11:20→21:22)
[2018-04-09] MEDS: ASCORBIC ACID 500 MG TAB PO SCH ×2 (11:20→21:23)
[2018-04-09] MEDS: DIGOXIN 0.125 MG TAB PO SCH (11:21)
[2018-04-09] MEDS: METOPROLOL SUCCINATE XL 50 MG TAB PO SCH ×2 (11:22→21:23)
[2018-04-09] MEDS: HYDROcodone-ACET 10/325MG TAB PO PRN ×2 (12:29→21:23)
[2018-04-09 13:00] VITALS: BP 127/82
[2018-04-09 16:51] VITALS: BP 124/78
[2018-04-09] MEDS: RIVAROXABAN 20 MG TAB PO SCH (18:00)
[2018-04-09 22:00] VITALS: BP 137/87
[2018-04-10] MEDS: SODIUM CHLORIDE 0.9% 1,000 ML IV SCH ×2 (04:43→20:00)
[2018-04-10] MEDS: DOBUTamine 1000MCG/ML 250 ML IV SCH ×2 (04:44→18:22)
[2018-04-10] MEDS: HYDROcodone-ACET 10/325MG TAB PO PRN (04:46)
[2018-04-10 05:00] VITALS: BP 132/81
[2018-04-10] MEDS: PIPERACILLIN-TAZO 4.5GM 100 ML IV SCH ×3 (06:30→21:37)
[2018-04-10] MEDS: LEVOTHYROXINE SODIUM 50 MCG TAB PO SCH (06:30)
[2018-04-10 09:00] VITALS: BP 124/82
[2018-04-10] MEDS: MULTIPLE VITAMINS W/ MINERALS TAB PO SCH ×2 (09:34→21:36)
[2018-04-10] MEDS: METOPROLOL SUCCINATE XL 50 MG TAB PO SCH ×2 (09:34→21:37)
[2018-04-10] MEDS: ASCORBIC ACID 500 MG TAB PO SCH ×2 (09:34→21:36)
[2018-04-10] MEDS: DIGOXIN 0.125 MG TAB PO SCH (09:34)
[2018-04-10 13:00] VITALS: BP 134/93
[2018-04-10 16:10] VITALS: BP 110/66
[2018-04-10] MEDS: RIVAROXABAN 20 MG TAB PO SCH (17:36)
[2018-04-10 22:00] VITALS: BP 156/93
[2018-04-11 04:49] VITALS: BP 158/97
[2018-04-11] MEDS: LEVOTHYROXINE SODIUM 50 MCG TAB PO SCH (06:05)
[2018-04-11] MEDS: PIPERACILLIN-TAZO 4.5GM 100 ML IV SCH ×3 (06:05→22:10)
[2018-04-11] MEDS: DOBUTamine 1000MCG/ML 250 ML IV SCH ×2 (08:05→22:18)
[2018-04-11 09:00] VITALS: BP 137/83
[2018-04-11] MEDS: METOPROLOL SUCCINATE XL 50 MG TAB PO SCH ×2 (09:37→22:10)
[2018-04-11] MEDS: ASCORBIC ACID 500 MG TAB PO SCH ×2 (09:38→22:09)
[2018-04-11] MEDS: MULTIPLE VITAMINS W/ MINERALS TAB PO SCH ×2 (09:38→22:09)
[2018-04-11] MEDS: DIGOXIN 0.125 MG TAB PO SCH (09:39)
[2018-04-11 13:00] VITALS: BP 148/87
[2018-04-11 13:06] LABS: Basophils # (auto) 0 uL; Basophils % (auto) 0.4 % (0.0-2.0); Eosinophils # (auto) 0 uL; Eosinophils % (auto) 0.8 % (0.0-7.0); Hematocrit 46.4 % (36.0-46.0); Hemoglobin 15.4 g/dL (12.2-16.2); Lymphocytes # (auto) 0.4 uL; Lymphocytes % (auto) 7.6 % (10.0-50.0); Mean Corpuscular Hgb Conc. 33.3 g/dL (32.0-36.0); Mean Corpuscular Volume 99.3 fL (80.0-100.0); Monocytes # (auto) 0.5 uL; Monocytes % (auto) 8.1 % (0.0-12.0); Neutrophils # (auto) 4.7 uL; Neutrophils % (auto) 83.1 % (37.0-80.0); Nucleated Red Blood Cells % 0.1 %; Platelet Count (auto) 193 10^3/uL (140-450); Red Blood Cells 4.68 10^6/uL (4.0-5.20); White Blood Cell 5.6 10^3/uL (4.4-10.8)
[2018-04-11 13:25] LABS: Calcium 7.3 mg/dL (8.5-10.1); Potassium 3.9 mmol/L (3.5-5.1)
[2018-04-11 13:35] LABS: Bilirubin, Total 1.6 mg/dL (0.2-1.0); Total Protein 5.9 g/dL (6.4-8.2)
[2018-04-11 17:00] VITALS: BP 145/85
[2018-04-11] MEDS: SODIUM CHLORIDE 0.9% 1,000 ML IV SCH (17:12)
[2018-04-11] MEDS: RIVAROXABAN 20 MG TAB PO SCH (17:51)
[2018-04-11 22:00] VITALS: BP 158/88
[2018-04-12 05:00] VITALS: BP 140/89
[2018-04-12] MEDS: PIPERACILLIN-TAZO 4.5GM 100 ML IV SCH ×3 (06:53→22:04)
[2018-04-12] MEDS: LEVOTHYROXINE SODIUM 50 MCG TAB PO SCH (06:53)
[2018-04-12] MEDS: DIGOXIN 0.125 MG TAB PO SCH (09:09)
[2018-04-12] MEDS: ASCORBIC ACID 500 MG TAB PO SCH ×2 (09:09→22:05)
[2018-04-12] MEDS: METOPROLOL SUCCINATE XL 50 MG TAB PO SCH ×2 (09:09→22:05)
[2018-04-12] MEDS: MULTIPLE VITAMINS W/ MINERALS TAB PO SCH ×2 (09:09→22:05)
[2018-04-12 09:39] VITALS: BP 141/91
[2018-04-12] MEDS: DOBUTamine 1000MCG/ML 250 ML IV SCH (11:57)
[2018-04-12] MEDS: SODIUM CHLORIDE 0.9% 1,000 ML IV SCH (11:57)
[2018-04-12 13:23] VITALS: BP 156/66
[2018-04-12 16:50] VITALS: BP 156/83
[2018-04-12] MEDS: RIVAROXABAN 20 MG TAB PO SCH (18:04)
[2018-04-12 22:00] VITALS: BP 145/105
[2018-04-13] MEDS: DOBUTamine 1000MCG/ML 250 ML IV SCH ×2 (02:05→15:44)
[2018-04-13 04:57] VITALS: BP 155/110
[2018-04-13] MEDS: PIPERACILLIN-TAZO 4.5GM 100 ML IV SCH ×3 (06:09→22:45)
[2018-04-13] MEDS: LEVOTHYROXINE SODIUM 50 MCG TAB PO SCH (06:13)
[2018-04-13 09:22] VITALS: BP 148/80
[2018-04-13] MEDS: SODIUM CHLORIDE 0.9% 1,000 ML IV SCH (10:50)
[2018-04-13] MEDS: MULTIPLE VITAMINS W/ MINERALS TAB PO SCH ×2 (10:51→22:45)
[2018-04-13] MEDS: DIGOXIN 0.125 MG TAB PO SCH (10:51)
[2018-04-13] MEDS: METOPROLOL SUCCINATE XL 50 MG TAB PO SCH ×2 (10:51→22:46)
[2018-04-13] MEDS: ASCORBIC ACID 500 MG TAB PO SCH ×2 (10:55→22:46)
[2018-04-13 11:50] VITALS: BP 149/88
[2018-04-13] MEDS: HYDROcodone-ACET 10/325MG TAB PO PRN ×2 (13:15→19:04)
[2018-04-13 16:32] VITALS: BP 139/92
[2018-04-13] MEDS: RIVAROXABAN 20 MG TAB PO SCH (19:04)
[2018-04-13 22:00] VITALS: BP 133/78
[2018-04-14 05:00] VITALS: BP 145/105
[2018-04-14] MEDS: SODIUM CHLORIDE 0.9% 1,000 ML IV SCH (05:23)
[2018-04-14] MEDS: DOBUTamine 1000MCG/ML 250 ML IV SCH ×2 (05:23→18:06)
[2018-04-14] MEDS: PIPERACILLIN-TAZO 4.5GM 100 ML IV SCH ×3 (06:29→22:00)
[2018-04-14] MEDS: LEVOTHYROXINE SODIUM 50 MCG TAB PO SCH (06:29)
[2018-04-14 09:00] VITALS: BP 146/85
[2018-04-14] MEDS: DIGOXIN 0.125 MG TAB PO SCH (09:40)
[2018-04-14] MEDS: METOPROLOL SUCCINATE XL 50 MG TAB PO SCH ×2 (09:40→22:47)
[2018-04-14] MEDS: ASCORBIC ACID 500 MG TAB PO SCH ×2 (09:40→22:48)
[2018-04-14] MEDS: MULTIPLE VITAMINS W/ MINERALS TAB PO SCH ×2 (09:40→22:47)
[2018-04-14] MEDS: Ensure Enlive Strawberry 8oz Bottle PO SCH ×2 (12:15→17:57)
[2018-04-14 13:00] VITALS: BP 139/78
[2018-04-14 17:28] VITALS: BP 135/98
[2018-04-14] MEDS: Pro-Stat SF 30ml Vanilla PO SCH (17:57)
[2018-04-14] MEDS: RIVAROXABAN 20 MG TAB PO SCH (18:05)
[2018-04-14 21:57] VITALS: BP 145/90
[2018-04-14] MEDS: HYDROcodone-ACET 10/325MG TAB PO PRN (22:48)
[2018-04-15] MEDS: SODIUM CHLORIDE 0.9% 1,000 ML IV SCH (00:14)
[2018-04-15 04:56] VITALS: BP 141/94
[2018-04-15 05:57] LABS: Albumin 2.1 g/dL (3.4-5.0); Calcium 8.3 mg/dL (8.5-10.1); Potassium 4.4 mmol/L (3.5-5.1)
[2018-04-15 06:00] LABS: BUN/Creatinine Ratio 21.3; Bilirubin, Total 1.3 mg/dL (0.2-1.0); Total Protein 6.6 g/dL (6.4-8.2)
[2018-04-15] MEDS: PIPERACILLIN-TAZO 4.5GM 100 ML IV SCH ×2 (06:08→14:45)
[2018-04-15] MEDS: LEVOTHYROXINE SODIUM 50 MCG TAB PO SCH (06:31)
[2018-04-15] MEDS: Pro-Stat SF 30ml Vanilla PO SCH (08:00)
[2018-04-15] MEDS: Ensure Enlive Strawberry 8oz Bottle PO SCH (08:00)
[2018-04-15 09:00] VITALS: BP 137/75
[2018-04-15] MEDS: METOPROLOL SUCCINATE XL 50 MG TAB PO SCH (09:09)
[2018-04-15] MEDS: DOBUTamine 1000MCG/ML 250 ML IV SCH (09:09)
[2018-04-15] MEDS: ASCORBIC ACID 500 MG TAB PO SCH (09:09)
[2018-04-15] MEDS: DIGOXIN 0.125 MG TAB PO SCH (09:10)
[2018-04-15] MEDS: MULTIPLE VITAMINS W/ MINERALS TAB PO SCH (09:11)
[2018-04-15 13:00] VITALS: BP_SYST 113; BP_SYST 131; BP_DIAS 85
[2018-04-15 16:26] VITALS: BP 137/75
[2018-04-15 17:00] VITALS: BP 149/94
[2018-04-15 17:29] VITALS: BP 137/75
== END 2018-04-15 19:00 | disposition home health service (06) | DRG 871 ==
LOC: WEST WING 14:36
PROVIDERS: ADMIT Internal Medicine Cardiovascular Disease; ATTEND Internal Medicine Cardiovascular Disease
DX: A41.9 Sepsis, unspecified organism (principal); E43 Unspecified severe protein-calorie malnutrition; N17.9 Acute kidney failure, unspecified; J44.9 Chronic obstructive pulmonary disease, unspecified; I25.10 Atherosclerotic heart disease of native coronary artery without angina pectoris; R09.02 Hypoxemia; I87.2 Venous insufficiency (chronic) (peripheral); E86.0 Dehydration; Z68.24 Body mass index [BMI] 24.0-24.9, adult; I73.9 Peripheral vascular disease, unspecified
CPT/HCPCS: 36415; 80048; 80053; 80162; 81001; 82962; 83735; 84443; 85025; 87040; 87086; 87088; 87186; 93926; 96360; 96361; 97110; 97116; 97163; 97530; G0378; G0463; J2543

== ENCOUNTER 2018-04-20 10:32 | Inpatient (IN) | payer MEDICARE ==
[~2018-04-20] VITALS: Ht 167.6 cm; Wt 61.6 kg
[~2018-04-20 10:32] MED LIST changes: -AML5T PO; -FUR40T PO; +FURO40TA4 PO; -POT20T PO; +POTA20TA53 PO
[2018-04-20 11:50] LABS: Urine Bacteria FEW /hpf (None Seen); Urine Blood 2+ /uL (Negative); Urine Specific Gravity 1.015 (1.001-1.035); Urine WBC 16 /hpf (0 - 5)
[2018-04-20 11:54] LABS: Basophils # (auto) 0 uL; Eosinophils # (auto) 0 uL; Eosinophils % (auto) 0.1 % (0.0-7.0); Hematocrit 46.6 % (36.0-46.0); Hemoglobin 15.4 g/dL (12.2-16.2); Lymphocytes # (auto) 0.6 uL; Mean Corpuscular Hemoglobin 32.2 pg (28.0-32.0); Mean Corpuscular Volume 97.6 fL (80.0-100.0); Monocytes # (auto) 0.9 uL; Monocytes % (auto) 5.9 % (0.0-12.0); Platelet Count (auto) 195 10^3/uL (140-450); Red Blood Cells 4.78 10^6/uL (4.0-5.20); Red Cell Distribution Width 15.4 % (11.8-14.3); White Blood Cell 15.5 10^3/uL (4.4-10.8)
[2018-04-20 11:59] LABS: Albumin 2.3 g/dL (3.4-5.0); BUN/Creatinine Ratio 14.9; Calcium 8.3 mg/dL (8.5-10.1); Potassium 3.8 mmol/L (3.5-5.1)
[2018-04-20 12:03] LABS: Bilirubin, Total 1.9 mg/dL (0.2-1.0); Total Protein 6.9 g/dL (6.4-8.2)
[2018-04-20] MEDS ORDERED: FUROSEMIDE 40 MG/4 ML VIAL IV ONE ×2 (12:15→21:00)
[2018-04-20] MEDS ORDERED: LEVOFLOXACIN 500MG 100 ML IV ONE (12:15)
[2018-04-20 13:59] LABS: Lactic Acid w/Reflex 2.2 mmol/L (0.4-2.0)
[2018-04-20] MEDS ORDERED: MORPHINE SULFATE 4 MG/ML SYR/VIAL IV PRN (15:00)
[2018-04-20] MEDS ORDERED: NITROGLYCERIN 0.4 MG SL TAB SL PRN (15:00)
[2018-04-20] MEDS ORDERED: FUROSEMIDE 40 MG/4 ML VIAL IV SCH (18:00)
[2018-04-20] MEDS: RIVAROXABAN 20 MG TAB PO SCH (18:53)
[2018-04-20] MEDS: POTASSIUM CHL 20 Meq TABLET PO SCH (21:06)
[2018-04-20] MEDS: DIGOXIN 0.125 MG TAB PO SCH (21:07)
[2018-04-20] MEDS: METOPROLOL TARTRATE 50 MG TAB PO SCH (21:17)
[2018-04-20 21:45] VITALS: BP 127/87
[2018-04-20 22:00] VITALS: BP 127/87
[2018-04-21 05:00] VITALS: BP 132/87
[2018-04-21 05:35] LABS: Basophils # (auto) 0 uL; Basophils % (auto) 0.3 % (0.0-2.0); Eosinophils # (auto) 0 uL; Eosinophils % (auto) 0.1 % (0.0-7.0); Hematocrit 43.2 % (36.0-46.0); Hemoglobin 14.6 g/dL (12.2-16.2); Lymphocytes # (auto) 0.7 uL; Lymphocytes % (auto) 7.3 % (10.0-50.0); Mean Corpuscular Hemoglobin 32.9 pg (28.0-32.0); Mean Corpuscular Hgb Conc. 33.7 g/dL (32.0-36.0); Mean Corpuscular Volume 97.7 fL (80.0-100.0); Monocytes # (auto) 0.4 uL; Monocytes % (auto) 4.5 % (0.0-12.0); Neutrophils # (auto) 8.4 uL; Neutrophils % (auto) 87.8 % (37.0-80.0); Platelet Count (auto) 162 10^3/uL (140-450); Red Blood Cells 4.43 10^6/uL (4.0-5.20); Red Cell Distribution Width 15.3 % (11.8-14.3); White Blood Cell 9.6 10^3/uL (4.4-10.8)
[2018-04-21 06:00] LABS: Calcium 8.1 mg/dL (8.5-10.1); Potassium 3.7 mmol/L (3.5-5.1)
[2018-04-21] MEDS: LEVOTHYROXINE SODIUM 50 MCG TAB PO SCH (06:00)
[2018-04-21] MEDS: FUROSEMIDE 40 MG/4 ML VIAL IV SCH ×2 (06:04→17:58)
[2018-04-21 06:05] LABS: BUN/Creatinine Ratio 27.3
[2018-04-21 08:53] VITALS: BP 145/84
[2018-04-21] MEDS: METOPROLOL TARTRATE 50 MG TAB PO SCH ×2 (09:23→21:41)
[2018-04-21] MEDS: POTASSIUM CHL 20 Meq TABLET PO SCH ×2 (09:23→21:48)
[2018-04-21] MEDS: TORSEMIDE 20 MG TAB PO SCH (09:23)
[2018-04-21 13:00] VITALS: BP 106/74
[2018-04-21] MEDS: PIPERACILLIN-TAZO 4.5GM 100 ML IV SCH ×2 (14:58→20:00)
[2018-04-21 16:44] VITALS: BP 135/84
[2018-04-21] MEDS: RIVAROXABAN 20 MG TAB PO SCH (17:59)
[2018-04-21] MEDS: DIGOXIN 0.125 MG TAB PO SCH (21:40)
[2018-04-21 22:00] VITALS: BP 137/79
[2018-04-22] MEDS: PIPERACILLIN-TAZO 4.5GM 100 ML IV SCH ×3 (03:54→20:46)
[2018-04-22 05:59] VITALS: BP 119/81
[2018-04-22] MEDS: FUROSEMIDE 40 MG/4 ML VIAL IV SCH ×2 (06:11→17:52)
[2018-04-22] MEDS: LEVOTHYROXINE SODIUM 50 MCG TAB PO SCH (06:12)
[2018-04-22 09:00] VITALS: BP 126/78
[2018-04-22] MEDS: POTASSIUM CHL 20 Meq TABLET PO SCH ×2 (10:18→21:02)
[2018-04-22] MEDS: TORSEMIDE 20 MG TAB PO SCH (10:19)
[2018-04-22] MEDS: METOPROLOL TARTRATE 50 MG TAB PO SCH ×2 (10:20→21:00)
[2018-04-22 12:00] VITALS: BP 122/75
[2018-04-22 17:00] VITALS: BP 141/96
[2018-04-22] MEDS: RIVAROXABAN 20 MG TAB PO SCH (17:52)
[2018-04-22 20:08] VITALS: BP 125/75
[2018-04-22] MEDS: ASCORBIC ACID 500 MG TAB PO SCH (21:01)
[2018-04-22] MEDS: DIGOXIN 0.125 MG TAB PO SCH (21:03)
[2018-04-22] MEDS: Pro-Stat SF 30ml Vanilla PO SCH (21:04)
[2018-04-22 22:00] VITALS: BP 125/75
[2018-04-23] MEDS: PIPERACILLIN-TAZO 4.5GM 100 ML IV SCH ×2 (03:23→12:40)
[2018-04-23 05:00] VITALS: BP 136/91
[2018-04-23] MEDS: LEVOTHYROXINE SODIUM 50 MCG TAB PO SCH (06:33)
[2018-04-23] MEDS: FUROSEMIDE 40 MG/4 ML VIAL IV SCH ×2 (06:33→20:04)
[2018-04-23] MEDS ORDERED: LIDOCAINE VISCOUS 2% 15ML UD MT ONE (07:30)
[2018-04-23] MEDS ORDERED: MIDAZOLAM HCL 1MG/1ML-2 ML VIAL IV ONE (07:30)
[2018-04-23] MEDS ORDERED: FLUMAZENIL 0.1 MG/ML INJ 10ML MDV IV ONE (07:30)
[2018-04-23] MEDS ORDERED: fentaNYL CITRATE 100 MCG/2 ML VL IV ONE (07:30)
[2018-04-23] MEDS ORDERED: NALOXONE HCL 0.4 MG/ML VIAL IV ONE (07:30)
[2018-04-23 07:40] LABS: INR 1.22 (0.9-1.15); Partial Thromboplastin Time 32.1 sec (23.78-33.04); Prothrombin Time 12.9 sec (9.27-12.13)
[2018-04-23 09:00] VITALS: BP 135/74
[2018-04-23] MEDS: Pro-Stat SF 30ml Vanilla PO SCH ×2 (10:00→22:52)
[2018-04-23] MEDS: ASCORBIC ACID 500 MG TAB PO SCH ×2 (12:08→22:52)
[2018-04-23] MEDS: POTASSIUM CHL 20 Meq TABLET PO SCH ×2 (12:08→22:50)
[2018-04-23] MEDS: METOPROLOL TARTRATE 50 MG TAB PO SCH ×2 (12:09→22:52)
[2018-04-23] MEDS: TORSEMIDE 20 MG TAB PO SCH (12:10)
[2018-04-23 13:04] VITALS: BP 139/85
[2018-04-23 17:00] VITALS: BP 129/82
[2018-04-23] MEDS: ceFAZolin 1GM/50ML 50 ML IV SCH (20:04)
[2018-04-23] MEDS: RIVAROXABAN 20 MG TAB PO SCH (20:04)
[2018-04-23 22:00] VITALS: BP 137/86
[2018-04-23] MEDS: DIGOXIN 0.125 MG TAB PO SCH (22:51)
[2018-04-24 05:00] VITALS: BP 150/84
[2018-04-24] MEDS: ceFAZolin 1GM/50ML 50 ML IV SCH ×4 (06:48→18:43)
[2018-04-24] MEDS: FUROSEMIDE 40 MG/4 ML VIAL IV SCH ×2 (06:51→18:42)
[2018-04-24] MEDS: LEVOTHYROXINE SODIUM 50 MCG TAB PO SCH (06:53)
[2018-04-24 07:40] VITALS: BP 148/67
[2018-04-24 08:40] VITALS: BP 148/67
[2018-04-24] MEDS: POTASSIUM CHL 20 Meq TABLET PO SCH ×2 (10:50→22:24)
[2018-04-24] MEDS: METOPROLOL TARTRATE 50 MG TAB PO SCH ×2 (10:53→22:25)
[2018-04-24] MEDS: TORSEMIDE 20 MG TAB PO SCH (10:56)
[2018-04-24] MEDS: ASCORBIC ACID 500 MG TAB PO SCH ×2 (10:58→22:26)
[2018-04-24 12:50] VITALS: BP 127/90
[2018-04-24 17:18] VITALS: BP 143/98
[2018-04-24] MEDS: RIVAROXABAN 20 MG TAB PO SCH (18:42)
[2018-04-24] MEDS: Pro-Stat SF 30ml Vanilla PO SCH ×2 (18:43→22:25)
[2018-04-24] MEDS: SILDENAFIL CITRATE 20 MG TAB PO SCH (21:22)
[2018-04-24 22:00] VITALS: BP 144/82
[2018-04-24] MEDS: DIGOXIN 0.125 MG TAB PO SCH (22:24)
[2018-04-25] MEDS: ceFAZolin 1GM/50ML 50 ML IV SCH ×4 (00:33→18:32)
[2018-04-25 05:00] VITALS: BP 109/73
[2018-04-25] MEDS: LEVOTHYROXINE SODIUM 50 MCG TAB PO SCH (06:38)
[2018-04-25] MEDS: FUROSEMIDE 40 MG/4 ML VIAL IV SCH ×2 (06:38→18:32)
[2018-04-25 07:52] VITALS: BP 137/86
[2018-04-25] MEDS: SILDENAFIL CITRATE 20 MG TAB PO SCH ×3 (08:10→21:37)
[2018-04-25 08:38] VITALS: BP 137/86
[2018-04-25] MEDS: POTASSIUM CHL 20 Meq TABLET PO SCH ×2 (09:32→22:31)
[2018-04-25] MEDS: ASCORBIC ACID 500 MG TAB PO SCH ×2 (09:32→22:33)
[2018-04-25] MEDS: HYDROcodone-ACET 5/325MG TAB PO PRN ×2 (09:33→21:38)
[2018-04-25] MEDS: TORSEMIDE 20 MG TAB PO SCH (09:37)
[2018-04-25] MEDS: METOPROLOL TARTRATE 50 MG TAB PO SCH ×2 (09:37→22:32)
[2018-04-25] MEDS: Pro-Stat SF 30ml Vanilla PO SCH ×2 (09:40→22:33)
[2018-04-25 12:38] VITALS: BP 105/61
[2018-04-25 16:43] VITALS: BP 105/81
[2018-04-25] MEDS: RIVAROXABAN 20 MG TAB PO SCH (18:32)
[2018-04-25 22:00] VITALS: BP 112/72
[2018-04-25] MEDS: DIGOXIN 0.125 MG TAB PO SCH (22:32)
[2018-04-26 05:00] VITALS: BP 121/80
[2018-04-26 06:31] LABS: Potassium 3.9 mmol/L (3.5-5.1)
[2018-04-26 06:36] LABS: Calcium 8.2 mg/dL (8.5-10.1)
[2018-04-26] MEDS: ceFAZolin 1GM/50ML 50 ML IV SCH ×5 (06:49→23:36)
[2018-04-26] MEDS: FUROSEMIDE 40 MG/4 ML VIAL IV SCH ×2 (06:50→17:21)
[2018-04-26] MEDS: LEVOTHYROXINE SODIUM 50 MCG TAB PO SCH (06:51)
[2018-04-26] MEDS: SILDENAFIL CITRATE 20 MG TAB PO SCH ×3 (08:06→20:04)
[2018-04-26 09:11] VITALS: BP 114/79
[2018-04-26] MEDS: POTASSIUM CHL 20 Meq TABLET PO SCH ×2 (10:38→21:46)
[2018-04-26] MEDS: TORSEMIDE 20 MG TAB PO SCH (10:39)
[2018-04-26] MEDS: METOPROLOL TARTRATE 50 MG TAB PO SCH ×2 (10:40→21:47)
[2018-04-26] MEDS: Pro-Stat SF 30ml Vanilla PO SCH ×2 (10:40→21:49)
[2018-04-26] MEDS: ASCORBIC ACID 500 MG TAB PO SCH ×2 (10:40→21:46)
[2018-04-26 13:32] VITALS: BP 104/70
[2018-04-26 16:46] VITALS: BP 114/76
[2018-04-26] MEDS: RIVAROXABAN 20 MG TAB PO SCH (17:21)
[2018-04-26] MEDS: DIGOXIN 0.125 MG TAB PO SCH (21:47)
[2018-04-26] MEDS: HYDROcodone-ACET 5/325MG TAB PO PRN (21:52)
[2018-04-26 22:00] VITALS: BP 135/78
[2018-04-27 05:00] VITALS: BP 125/61
[2018-04-27] MEDS: ceFAZolin 1GM/50ML 50 ML IV SCH ×3 (05:52→18:00)
[2018-04-27] MEDS: FUROSEMIDE 40 MG/4 ML VIAL IV SCH ×2 (05:53→18:00)
[2018-04-27] MEDS: LEVOTHYROXINE SODIUM 50 MCG TAB PO SCH (06:32)
[2018-04-27 08:00] VITALS: BP 122/76
[2018-04-27] MEDS: SILDENAFIL CITRATE 20 MG TAB PO SCH ×2 (08:56→16:07)
[2018-04-27] MEDS: TORSEMIDE 20 MG TAB PO SCH (09:00)
[2018-04-27] MEDS: ASCORBIC ACID 500 MG TAB PO SCH (09:00)
[2018-04-27] MEDS: POTASSIUM CHL 20 Meq TABLET PO SCH (09:01)
[2018-04-27] MEDS: METOPROLOL TARTRATE 50 MG TAB PO SCH (09:01)
[2018-04-27] MEDS: Pro-Stat SF 30ml Vanilla PO SCH (09:04)
[2018-04-27 13:00] VITALS: BP 103/56
[2018-04-27 16:42] VITALS: BP 122/76
[2018-04-27 17:20] VITALS: BP 137/76
[2018-04-27] MEDS: RIVAROXABAN 20 MG TAB PO SCH (18:00)
== END 2018-04-27 18:30 | disposition home or self-care (01) | DRG 871 ==
LOC: ER 10:32 → TELE 14:42 → TELE-EAST 21:45
PROVIDERS: ADMIT Internal Medicine; ATTEND Internal Medicine Cardiovascular Disease
PROC: B246ZZ4 Ultrasonography of Right and Left Heart, Transesophageal (ICD-10-PCS; principal; 2018-04-23)
DX: A41.89 Other specified sepsis (principal); I50.33 Acute on chronic diastolic (congestive) heart failure; J96.00 Acute respiratory failure, unspecified whether with hypoxia or hypercapnia; D68.69 Other thrombophilia; E44.0 Moderate protein-calorie malnutrition; L97.909 Non-pressure chronic ulcer of unspecified part of unspecified lower leg with unspecified severity; N39.0 Urinary tract infection, site not specified; I48.91 Unspecified atrial fibrillation; E03.9 Hypothyroidism, unspecified; I27.20 Pulmonary hypertension, unspecified; J44.9 Chronic obstructive pulmonary disease, unspecified; I87.8 Other specified disorders of veins; I08.1 Rheumatic disorders of both mitral and tricuspid valves; I73.9 Peripheral vascular disease, unspecified; I87.2 Venous insufficiency (chronic) (peripheral); M19.90 Unspecified osteoarthritis, unspecified site; Z95.0 Presence of cardiac pacemaker; Z68.21 Body mass index [BMI] 21.0-21.9, adult
CPT/HCPCS: 36415; 71045; 73030; 80048; 80053; 81001; 83605; 83735; 83880; 84484; 85025; 85610; 85730; 86850; 86900; 86901; 87040; 87077; 87081; 87186; 87493; 93005; 93312; 97110; 97116; 97163; 97530; 99152; G0378; J0690; J1956; J2250; J2543

== ENCOUNTER → 2018-05-06 | Outpatient (CLI) | payer MEDICARE ==
[2018-05-06 10:49] VITALS: BP 152/107
[2018-05-06 13:00] VITALS: BP 174/97
== END | disposition home or self-care (01) ==
LOC: CHF HDHVI 10:40
PROVIDERS: ATTEND Internal Medicine Cardiovascular Disease
DX: I11.0 Hypertensive heart disease with heart failure (principal); I50.9 Heart failure, unspecified; I25.10 Atherosclerotic heart disease of native coronary artery without angina pectoris; I48.91 Unspecified atrial fibrillation; I27.21 Secondary pulmonary arterial hypertension; R06.02 Shortness of breath; E07.9 Disorder of thyroid, unspecified
CPT/HCPCS: 93701; 94618; G0463

== ENCOUNTER → 2018-05-29 | Outpatient (CLI) | payer MEDICARE ==
[~2018-05-29] MED LIST changes: +LOSA-49 PO
[2018-05-29 11:20] VITALS: BP 138/78
[2018-05-29 11:50] VITALS: BP 135/88
[2018-05-29 11:58] LABS: Basophils # (auto) 0 uL; Basophils % (auto) 0.8 % (0.0-2.0); Eosinophils # (auto) 0.1 uL; Eosinophils % (auto) 1.8 % (0.0-7.0); Hematocrit 50.4 % (36.0-46.0); Hemoglobin 16.4 g/dL (12.2-16.2); Lymphocytes # (auto) 1.2 uL; Mean Corpuscular Hemoglobin 32.2 pg (28.0-32.0); Mean Corpuscular Hgb Conc. 32.5 g/dL (32.0-36.0); Mean Corpuscular Volume 99.2 fL (80.0-100.0); Monocytes # (auto) 0.5 uL; Monocytes % (auto) 10.8 % (0.0-12.0); Neutrophils # (auto) 2.7 uL; Neutrophils % (auto) 59.6 % (37.0-80.0); Nucleated Red Blood Cells % 0.3 %; Platelet Count (auto) 162 10^3/uL (140-450); Red Blood Cells 5.08 10^6/uL (4.0-5.20); Red Cell Distribution Width 16.8 % (11.8-14.3); White Blood Cell 4.5 10^3/uL (4.4-10.8)
[2018-05-29 12:09] LABS: INR 1.22 (0.9-1.15); Partial Thromboplastin Time 35.9 sec (23.78-33.04); Prothrombin Time 12.9 sec (9.27-12.13)
[2018-05-29 12:45] LABS: BUN/Creatinine Ratio 23.1; Calcium 9.5 mg/dL (8.5-10.1); Potassium 3.9 mmol/L (3.5-5.1)
== END | disposition home or self-care (01) ==
LOC: LAB 10:51
PROVIDERS: ATTEND Internal Medicine Cardiovascular Disease
DX: Z01.818 Encounter for other preprocedural examination (principal); I51.7 Cardiomegaly; D64.9 Anemia, unspecified; R79.1 Abnormal coagulation profile; I10 Essential (primary) hypertension
CPT/HCPCS: 36415; 71046; 80048; 85025; 85610; 85730; 93005; G0463

== ENCOUNTER 2018-06-04 08:57 | Day surgery (SDC) | payer MEDICARE ==
[~2018-06-04] VITALS: Ht 167.6 cm; Wt 56.2 kg
[~2018-06-04 08:57] MED LIST changes: -HYDR-2601 PO
[2018-06-04] MEDS ORDERED: LIDOCAINE 2%HCL (LOCAL ANESTH.) INJ 20ML MDV ONE (11:26)
[2018-06-04] MEDS ORDERED: IOHEXOL 350 MG/ML 100ML IJ ONE (11:26)
[2018-06-04] MEDS ORDERED: MIDAZOLAM HCL 1MG/1ML-2 ML VIAL ONE (11:34)
[2018-06-04] MEDS ORDERED: fentaNYL CITRATE 100 MCG/2 ML VL ONE (11:34)
== END 2018-06-04 13:40 | disposition home or self-care (01) ==
LOC: CATH 08:57
PROVIDERS: ATTEND Internal Medicine Cardiovascular Disease
DX: I27.20 Pulmonary hypertension, unspecified (principal); I73.9 Peripheral vascular disease, unspecified; J44.9 Chronic obstructive pulmonary disease, unspecified; I87.2 Venous insufficiency (chronic) (peripheral); F10.99 Alcohol use, unspecified with unspecified alcohol-induced disorder; I25.10 Atherosclerotic heart disease of native coronary artery without angina pectoris; I11.0 Hypertensive heart disease with heart failure; Z87.891 Personal history of nicotine dependence; Z82.49 Family history of ischemic heart disease and other diseases of the circulatory system; Z95.0 Presence of cardiac pacemaker; Z79.899 Other long term (current) drug therapy
CPT/HCPCS: 93456; A6257; C1751; C1769; C1894; J1644; J2250; J3010; Q9967; 99152; 99153

== ENCOUNTER → 2018-11-13 | Outpatient (CLI) | payer MEDICARE | END | disposition home or self-care (01) | LOC: Rad HDHVI 12:15 | PROVIDERS: ATTEND Internal Medicine Cardiovascular Disease | DX: I67.2 Cerebral atherosclerosis (principal); H53.8 Other visual disturbances; G31.9 Degenerative disease of nervous system, unspecified | CPT/HCPCS: 70450 ==

== ENCOUNTER → 2019-03-31 | Outpatient (CLI) | payer MEDICARE ==
[~2019-03-31] MED LIST changes: +LOSA-39 PO; -LOSA-49 PO; +POTA-220 PO; -POTA20TA53 PO
[2019-03-31 12:26] LABS: Urine Blood Negative /uL (Negative); Urine Specific Gravity 1.017 (1.001-1.035)
[2019-03-31 12:32] LABS: Basophils # (auto) 0 uL; Basophils % (auto) 1.3 % (0.0-2.0); Eosinophils # (auto) 0.1 uL; Eosinophils % (auto) 1.6 % (0.0-7.0); Hematocrit 44.4 % (36.0-46.0); Hemoglobin 14.5 g/dL (12.2-16.2); Lymphocytes # (auto) 0.9 uL; Lymphocytes % (auto) 26.6 % (10.0-50.0); Mean Corpuscular Hemoglobin 32.9 pg (28.0-32.0); Mean Corpuscular Hgb Conc. 32.6 g/dL (32.0-36.0); Mean Corpuscular Volume 100.8 fL (80.0-100.0); Monocytes # (auto) 0.4 uL; Monocytes % (auto) 12.5 % (0.0-12.0); Nucleated Red Blood Cells % 0.7 %; Platelet Count (auto) 129 10^3/uL (140-450); Red Blood Cells 4.41 10^6/uL (4.0-5.20); Red Cell Distribution Width 16.7 % (11.8-14.3); White Blood Cell 3.4 10^3/uL (4.4-10.8)
[2019-03-31 12:35] LABS: Albumin 3.7 g/dL (3.4-5.0); BUN/Creatinine Ratio 12.4; Calcium 8.9 mg/dL (8.5-10.1); Potassium 3.7 mmol/L (3.5-5.1)
[2019-03-31 12:39] LABS: Bilirubin, Total 1.6 mg/dL (0.2-1.0); Total Protein 7.6 g/dL (6.4-8.2)
[2019-03-31 12:46] LABS: Free T4 (Free Thyroxine) 1.1 ng/dL (0.89-1.76)
== END | disposition home or self-care (01) ==
LOC: Rad HDHVI 09:02
PROVIDERS: ATTEND Internal Medicine Cardiovascular Disease
DX: I08.8 Other rheumatic multiple valve diseases (principal); E03.9 Hypothyroidism, unspecified; K90.9 Intestinal malabsorption, unspecified; N39.0 Urinary tract infection, site not specified; D51.9 Vitamin B12 deficiency anemia, unspecified; J44.9 Chronic obstructive pulmonary disease, unspecified; I11.0 Hypertensive heart disease with heart failure; I50.9 Heart failure, unspecified; Z79.899 Other long term (current) drug therapy
CPT/HCPCS: 36415; 80053; 80061; 81003; 82306; 82607; 83036; 84439; 84443; 85025; 87086; 93306

== ENCOUNTER → 2019-05-13 | Outpatient (CLI) | payer MEDICARE | END | disposition home or self-care (01) | LOC: LAB 12:44 | PROVIDERS: ATTEND Podiatrist | DX: S91.001A Unspecified open wound, right ankle, initial encounter (principal); X58.XXXA Exposure to other specified factors, initial encounter; Y93.89 Activity, other specified; Y92.89 Other specified places as the place of occurrence of the external cause; Y99.8 Other external cause status | CPT/HCPCS: 87205 ==

== ENCOUNTER → 2019-08-04 | Outpatient (CLI) | payer MEDICARE | END | disposition home or self-care (01) | LOC: Rad HDHVI 10:00 | PROVIDERS: ATTEND Internal Medicine Cardiovascular Disease | DX: I70.203 Unspecified atherosclerosis of native arteries of extremities, bilateral legs (principal); S91.001A Unspecified open wound, right ankle, initial encounter; S91.002A Unspecified open wound, left ankle, initial encounter | CPT/HCPCS: 93926 ==

== ENCOUNTER → 2019-09-07 | Outpatient (CLI) | payer MEDICARE ==
[2019-09-07 12:12] LABS: Basophils # (auto) 0.1 10 ^3/uL (0-0.2); Basophils % (auto) 1.6 % (0.0-2.0); Eosinophils # (auto) 0.1 10 ^3/uL (0-0.8); Eosinophils % (auto) 1.7 % (0.0-7.0); Hematocrit 52.6 % (36.0-46.0); Hemoglobin 17.3 g/dL (12.2-16.2); Lymphocytes # (auto) 1.2 10 ^3/uL (0.4-5.4); Lymphocytes % (auto) 35.4 % (10.0-50.0); Mean Corpuscular Hemoglobin 33.2 pg (28.0-32.0); Mean Corpuscular Hgb Conc. 32.9 g/dL (32.0-36.0); Mean Corpuscular Volume 100.9 fL (80.0-100.0); Monocytes # (auto) 0.5 10 ^3/uL (0-1.3); Monocytes % (auto) 16.2 % (0.0-12.0); Neutrophils # (auto) 1.5 10 ^3/uL (1.6-8.6); Neutrophils % (auto) 45.1 % (37.0-80.0); Nucleated Red Blood Cells % 0.2 %; Platelet Count (auto) 183 10^3/uL (140-450); Red Blood Cells 5.22 10^6/uL (4.0-5.20); Red Cell Distribution Width 15.2 % (11.8-14.3); White Blood Cell 3.3 10^3/uL (4.4-10.8)
[2019-09-07 12:24] LABS: Potassium 4.6 mmol/L (3.5-5.1)
[2019-09-07 12:32] LABS: Albumin 3.5 g/dL (3.4-5.0); BUN/Creatinine Ratio 29.9; Bilirubin, Total 0.8 mg/dL (0.2-1.0); Calcium 9.6 mg/dL (8.5-10.1); Total Protein 8.1 g/dL (6.4-8.2)
== END | disposition home or self-care (01) ==
LOC: LAB 08:36
PROVIDERS: ATTEND Internal Medicine Cardiovascular Disease
DX: D64.9 Anemia, unspecified (principal)
CPT/HCPCS: 36415; 80053; 85025

== ENCOUNTER → 2020-01-03 | Outpatient (CLI) | payer MEDICARE | END | disposition home or self-care (01) | LOC: LAB 11:23 | PROVIDERS: ATTEND Internal Medicine Cardiovascular Disease | DX: R94.4 Abnormal results of kidney function studies (principal) | CPT/HCPCS: 36415; 82565 ==

== ENCOUNTER → 2020-01-05 | Outpatient (CLI) | payer MEDICARE ==
[~2020-01-05] VITALS: Ht 30.5 cm; Wt 53.1 kg
[~2020-01-05] MED LIST changes: +ASCO100076 PO; +CHOL100047 PO; +COEN100C15 PO; +IOHEXOL 350 MG/ML 100ML IJ ONE; +MAGN250T22 PO; +MIDAZOLAM HCL 1MG/1ML-2 ML VIAL ONE; +MILKPOW PO; +MORPHINE SULF(PF) 0.5MG/ML 10ML VIAL ONE; +SODIUM CHLORIDE 0.9% 1,000 ML IV ONE; +TORS20TA19 PO; +[UNRECOGNIZED DRUG - CODE] PO; +ceFAZolin 1GM VL ONE; +fentaNYL CITRATE 100 MCG/2 ML VL ONE
[2020-01-05 08:47] VITALS: BP 140/91
[2020-01-05 10:13] VITALS: BP 121/88
== END | disposition home or self-care (01) ==
LOC: Rad HDHVI 08:39
PROVIDERS: ATTEND Internal Medicine Cardiovascular Disease
DX: I83.812 Varicose veins of left lower extremity with pain (principal); L98.499 Non-pressure chronic ulcer of skin of other sites with unspecified severity; I77.1 Stricture of artery; I48.91 Unspecified atrial fibrillation; E03.9 Hypothyroidism, unspecified; Z79.899 Other long term (current) drug therapy
CPT/HCPCS: 75635; G0463; J7030; Q9967; 96360; J0690; J2250

== ENCOUNTER → 2020-02-02 | Day surgery (SDC) | payer MEDICARE ==
[2020-01-28 12:49] LABS: Basophils # (auto) 0 10 ^3/uL (0-0.2); Basophils % (auto) 1.4 % (0.0-2.0); Eosinophils # (auto) 0.1 10 ^3/uL (0-0.8); Eosinophils % (auto) 1.7 % (0.0-7.0); Hematocrit 53.1 % (36.0-46.0); Hemoglobin 17.2 g/dL (12.2-16.2); Lymphocytes % (auto) 29.6 % (10.0-50.0); Mean Corpuscular Hemoglobin 32.6 pg (28.0-32.0); Mean Corpuscular Hgb Conc. 32.3 g/dL (32.0-36.0); Monocytes # (auto) 0.4 10 ^3/uL (0-1.3); Monocytes % (auto) 11.7 % (0.0-12.0); Neutrophils # (auto) 1.9 10 ^3/uL (1.6-8.6); Neutrophils % (auto) 55.6 % (37.0-80.0); Nucleated Red Blood Cells % 0.4 %; Platelet Count (auto) 152 10^3/uL (140-450); Red Blood Cells 5.26 10^6/uL (4.0-5.20); Red Cell Distribution Width 15.3 % (11.8-14.3); White Blood Cell 3.5 10^3/uL (4.4-10.8)
[2020-01-28 13:01] LABS: Urine Bacteria NONE SEEN /hpf (None Seen); Urine Blood Negative /uL (Negative); Urine Specific Gravity 1.014 (1.001-1.035); Urine WBC 1 /hpf (0 - 5)
[2020-01-28 13:05] LABS: INR 1.34 (0.9-1.15); Partial Thromboplastin Time 35.6 sec (23.0-31.2)
[2020-01-28 13:10] LABS: Albumin 3.8 g/dL (3.4-5.0); Calcium 9.5 mg/dL (8.5-10.1); Potassium 3.4 mmol/L (3.5-5.1)
[2020-01-28 13:16] LABS: BUN/Creatinine Ratio 23.6; Bilirubin, Total 1.6 mg/dL (0.2-1.0); Total Protein 7.9 g/dL (6.4-8.2)
[~2020-02-02] VITALS: Ht 167.6 cm; Wt 53.5 kg
[~2020-02-02] MED LIST changes: +CIPROFLOXACIN 400MG/200ML 200 ML IV ONE; +FAMOTIDINE (10MG/ML) 2ML VL IV ONE; -FURO40TA4 PO; +GLYCOPYRROLATE 0.2 MG/ML 1ML VIAL ONE; +HYDROmorphone HCL 2 MG/ML VL IV PRN; +HYDROmorphone HCL 2 MG/ML VL ONE; -IOHEXOL 350 MG/ML 100ML IJ ONE; +LIDOCAINE 2% (LOCAL ANESTH.) PF 5ml SDV ONE; -LOSA-39 PO; -MORPHINE SULF(PF) 0.5MG/ML 10ML VIAL ONE; +ONDANSETRON HCL 4 MG/2 ML VIAL IV PRN; +ONDANSETRON HCL 4 MG/2 ML VIAL ONE; -POTA-220 PO; +PROPOFOL 10 MG/ML 20 ML IV ONE; +ROPIVACAINE 0.5% (5MG/ML) 20ML AMPULE IJ ONE; -SODIUM CHLORIDE 0.9% 1,000 ML IV ONE; -ceFAZolin 1GM VL ONE; -fentaNYL CITRATE 100 MCG/2 ML VL ONE
[2020-02-02] MEDS: MORPHINE SULFATE 4 MG/ML SYR/VIAL IV PRN ×2 (11:30→12:00)
[2020-02-02 12:35] VITALS: BP 136/97
== END | disposition home or self-care (01) ==
LOC: SUR 07:25
PROVIDERS: ATTEND Podiatrist Foot & Ankle Surgery
DX: L89.513 Pressure ulcer of right ankle, stage 3 (principal); I10 Essential (primary) hypertension; E03.9 Hypothyroidism, unspecified; I48.91 Unspecified atrial fibrillation; L98.498 Non-pressure chronic ulcer of skin of other sites with other specified severity; Z95.0 Presence of cardiac pacemaker; Z98.890 Other specified postprocedural states; Z79.899 Other long term (current) drug therapy; Z11.59 Encounter for screening for other viral diseases
CPT/HCPCS: 15004; 15275; 36415; 80053; 81001; 85025; 85610; 85730; 87070; 87075; 87205; C1887; J0744; J1170; J2001; J2250; J2270; J2405; J2704; J3490; Q4128; U0003; 87077; 87186

== ENCOUNTER → 2020-05-31 | Outpatient (CLI) | payer MEDICARE ==
[~2020-05-31] MED LIST changes: -CIPROFLOXACIN 400MG/200ML 200 ML IV ONE; -FAMOTIDINE (10MG/ML) 2ML VL IV ONE; -GLYCOPYRROLATE 0.2 MG/ML 1ML VIAL ONE; -HYDROmorphone HCL 2 MG/ML VL IV PRN; -HYDROmorphone HCL 2 MG/ML VL ONE; -LIDOCAINE 2% (LOCAL ANESTH.) PF 5ml SDV ONE; -MIDAZOLAM HCL 1MG/1ML-2 ML VIAL ONE; -ONDANSETRON HCL 4 MG/2 ML VIAL IV PRN; -ONDANSETRON HCL 4 MG/2 ML VIAL ONE; -PROPOFOL 10 MG/ML 20 ML IV ONE; -ROPIVACAINE 0.5% (5MG/ML) 20ML AMPULE IJ ONE
[2020-05-31 11:52] LABS: Basophils # (auto) 0 10 ^3/uL (0-0.2); Basophils % (auto) 1.3 % (0.0-2.0); Eosinophils # (auto) 0.1 10 ^3/uL (0-0.8); Eosinophils % (auto) 3.5 % (0.0-7.0); Hematocrit 45.6 % (36.0-46.0); Hemoglobin 14.7 g/dL (12.2-16.2); Lymphocytes # (auto) 1.1 10 ^3/uL (0.4-5.4); Lymphocytes % (auto) 32.8 % (10.0-50.0); Mean Corpuscular Hemoglobin 31.7 pg (28.0-32.0); Mean Corpuscular Hgb Conc. 32.3 g/dL (32.0-36.0); Mean Corpuscular Volume 98.2 fL (80.0-100.0); Monocytes # (auto) 0.5 10 ^3/uL (0-1.3); Monocytes % (auto) 16.9 % (0.0-12.0); Neutrophils # (auto) 1.5 10 ^3/uL (1.6-8.6); Neutrophils % (auto) 45.5 % (37.0-80.0); Nucleated Red Blood Cells % 0.9 %; Platelet Count (auto) 194 10^3/uL (140-450); Red Blood Cells 4.64 10^6/uL (4.0-5.20); Urine Blood Negative /uL (Negative); Urine Specific Gravity 1.015 (1.001-1.035); White Blood Cell 3.2 10^3/uL (4.4-10.8)
[2020-05-31 12:12] LABS: Potassium 3.7 mmol/L (3.5-5.1)
[2020-05-31 12:20] LABS: Albumin 3.3 g/dL (3.4-5.0); BUN/Creatinine Ratio 21.3; Bilirubin, Total 1.8 mg/dL (0.2-1.0); Calcium 9.1 mg/dL (8.5-10.1); Total Protein 7.4 g/dL (6.4-8.2)
[2020-05-31 12:33] LABS: Free T4 (Free Thyroxine) 1.16 ng/dL (0.89-1.76)
== END | disposition home or self-care (01) ==
LOC: LAB 09:08
PROVIDERS: ATTEND Internal Medicine Cardiovascular Disease
DX: D51.3 Other dietary vitamin B12 deficiency anemia (principal); I10 Essential (primary) hypertension; E11.9 Type 2 diabetes mellitus without complications; E55.9 Vitamin D deficiency, unspecified; D64.9 Anemia, unspecified; R00.2 Palpitations; R53.1 Weakness; R30.0 Dysuria
CPT/HCPCS: 36415; 80053; 80061; 81003; 82306; 82607; 83036; 84439; 84443; 85025

== ENCOUNTER → 2020-11-08 | Outpatient (CLI) | payer MEDICARE ==
[~2020-11-08] VITALS: Ht 30.5 cm; Wt 0.5 kg
[~2020-11-08] MED LIST changes: +FUROSEMIDE 100 MG/10ML VIAL IV ONE; +FUROSEMIDE 20 MG/2 ML VIAL ONE; +FUROSEMIDE INJECTION 10 ML ONE; +POTASSIUM CHL 10 Meq TABLET PO ONE; +POTASSIUM CHL 20 Meq TABLET PO ONE
[2020-11-08 11:37] VITALS: BP 135/77
[2020-11-08 11:57] VITALS: BP 139/77
[2020-11-08 16:07] LABS: BUN/Creatinine Ratio 14.1; Calcium 8.9 mg/dL (8.5-10.1); Magnesium 2.1 mg/dL (1.6-2.6); Potassium 3.6 mmol/L (3.5-5.1)
== END | disposition home or self-care (01) ==
LOC: CHF HDHVI 11:34
PROVIDERS: ATTEND Internal Medicine Cardiovascular Disease
DX: I10 Essential (primary) hypertension (principal); I48.91 Unspecified atrial fibrillation; M25.512 Pain in left shoulder; Z79.899 Other long term (current) drug therapy
CPT/HCPCS: 36415; 80048; 80162; 83735; 96374; G0463; J1940

== ENCOUNTER 2020-12-01 11:14 | Inpatient (IN) | payer MEDICARE ==
[~2020-12-01] VITALS: Ht 167.6 cm; Wt 61.6 kg
[~2020-12-01 11:14] MED LIST changes: -FUROSEMIDE 100 MG/10ML VIAL IV ONE; -FUROSEMIDE 20 MG/2 ML VIAL ONE; -FUROSEMIDE INJECTION 10 ML ONE; -POTASSIUM CHL 10 Meq TABLET PO ONE; -POTASSIUM CHL 20 Meq TABLET PO ONE
[2020-12-01] MEDS ORDERED: CLINDAMYCIN 900MG IV 50 ML IV ONE (12:00)
[2020-12-01 12:11] LABS: Basophils # (auto) 0 10 ^3/uL (0-0.2); Eosinophils # (auto) 0 10 ^3/uL (0-0.8); Eosinophils % (auto) 0.9 % (0.0-7.0); Hematocrit 40.2 % (36.0-46.0); Hemoglobin 13.3 g/dL (12.2-16.2); Lymphocytes # (auto) 0.8 10 ^3/uL (0.4-5.4); Lymphocytes % (auto) 22.5 % (10.0-50.0); Mean Corpuscular Hemoglobin 29.2 pg (28.0-32.0); Mean Corpuscular Volume 88.3 fL (80.0-100.0); Monocytes # (auto) 0.5 10 ^3/uL (0-1.3); Monocytes % (auto) 12.1 % (0.0-12.0); Neutrophils # (auto) 2.4 10 ^3/uL (1.6-8.6); Neutrophils % (auto) 63.5 % (37.0-80.0); Nucleated Red Blood Cells % 0.1 %; Platelet Count (auto) 213 10^3/uL (140-450); Red Blood Cells 4.55 10^6/uL (4.0-5.20); Red Cell Distribution Width 16.4 % (11.8-14.3); White Blood Cell 3.8 10^3/uL (4.4-10.8)
[2020-12-01 12:28] LABS: Albumin 3.2 g/dL (3.4-5.0); Anion Gap 7 (5-15); Blood Urea Nitrogen 12 mg/dL (7-18); Calcium 8.9 mg/dL (8.5-10.1); Carbon Dioxide 30 mmol/L (21-32); Chloride 100 mmol/L (98-107); Glucose 82 mg/dL (74-106); Potassium 4.1 mmol/L (3.5-5.1); Sodium 137 mmol/L (136-145)
[2020-12-01 12:33] LABS: Alanine Aminotransferase 11 U/L (13-56); Alkaline Phosphatase 108 U/L (45-117); Aspartate Aminotransferase 23 U/L (15-37); BUN/Creatinine Ratio 15.6; Bilirubin, Total 1.4 mg/dL (0.2-1.0); GFR African American 93 mL/min; GFR Non-African American 77 mL/min; Total Protein 7.2 g/dL (6.4-8.2)
[2020-12-01] MEDS ORDERED: NITROGLYCERIN 0.4 MG SL TAB SL PRN (17:45)
[2020-12-01] MEDS ORDERED: MORPHINE SULF INJ 2 MG/ML SYRINGE 1ML IV PRN (17:45)
[2020-12-01 19:25] LABS: Urine Bacteria NONE SEEN /hpf (None Seen); Urine Blood Negative /uL (Negative); Urine Specific Gravity 1.017 (1.001-1.035); Urine WBC 1 /hpf (0 - 5)
[2020-12-01 22:19] VITALS: BP 141/97
[2020-12-02] MEDS ORDERED: METOPROLOL TARTRATE 50 MG TAB PO ONE (00:15)
[2020-12-02] MEDS ORDERED: FURO40TA4 PO (00:42)
[2020-12-02] MEDS ORDERED: POTA-220 PO (00:42)
[2020-12-02 04:26] VITALS: BP 134/98
[2020-12-02 05:14] LABS: Basophils # (auto) 0 10 ^3/uL (0-0.2); Basophils % (auto) 1.3 % (0.0-2.0); Eosinophils # (auto) 0 10 ^3/uL (0-0.8); Eosinophils % (auto) 0.7 % (0.0-7.0); Hematocrit 38.5 % (36.0-46.0); Hemoglobin 12.6 g/dL (12.2-16.2); Lymphocytes # (auto) 0.5 10 ^3/uL (0.4-5.4); Lymphocytes % (auto) 16.5 % (10.0-50.0); Mean Corpuscular Hemoglobin 28.7 pg (28.0-32.0); Mean Corpuscular Hgb Conc. 32.8 g/dL (32.0-36.0); Mean Corpuscular Volume 87.4 fL (80.0-100.0); Monocytes # (auto) 0.5 10 ^3/uL (0-1.3); Monocytes % (auto) 16.3 % (0.0-12.0); Neutrophils # (auto) 2.1 10 ^3/uL (1.6-8.6); Neutrophils % (auto) 65.2 % (37.0-80.0); Nucleated Red Blood Cells % 0.3 %; Platelet Count (auto) 212 10^3/uL (140-450); Red Cell Distribution Width 16.9 % (11.8-14.3); White Blood Cell 3.2 10^3/uL (4.4-10.8)
[2020-12-02 05:43] LABS: INR 1.32 (0.9-1.15); Partial Thromboplastin Time 30.9 sec (23.0-31.2)
[2020-12-02 05:47] LABS: Albumin 2.8 g/dL (3.4-5.0); Anion Gap 5 (5-15); Blood Urea Nitrogen 16 mg/dL (7-18); Calcium 8.6 mg/dL (8.5-10.1); Carbon Dioxide 32 mmol/L (21-32); Chloride 103 mmol/L (98-107); Glucose 96 mg/dL (74-106); Potassium 4.1 mmol/L (3.5-5.1); Sodium 140 mmol/L (136-145)
[2020-12-02 05:55] LABS: Alanine Aminotransferase 10 U/L (13-56); Alkaline Phosphatase 98 U/L (45-117); Aspartate Aminotransferase 17 U/L (15-37); BUN/Creatinine Ratio 18.2; Bilirubin, Total 1.2 mg/dL (0.2-1.0); GFR African American 80 mL/min; GFR Non-African American 66 mL/min; Phosphorus 3.5 mg/dL (2.5-4.90); Total Protein 6.4 g/dL (6.4-8.2); Uric Acid 7.6 mg/dL (2.6-6.0)
[2020-12-02 06:00] LABS: Thyroid Stimulating Hormone 1.62 uIU/mL (0.358-3.74)
[2020-12-02 09:00] VITALS: BP 131/78
[2020-12-02] MEDS ORDERED: METOPROLOL TARTRATE 50 MG TAB PO SCH (10:00)
[2020-12-02 12:50] VITALS: BP 135/82
[2020-12-02 17:00] VITALS: BP 119/79
[2020-12-02] MEDS ORDERED: DOCUSATE SOD 100 MG CAP PO PRN (18:15)
[2020-12-02] MEDS ORDERED: HYDROcodone-ACET 5/325MG TAB PO PRN (18:15)
[2020-12-02] MEDS ORDERED: NITROGLYCERIN 0.4 MG SL TAB SL PRN (18:15)
[2020-12-02] MEDS ORDERED: ALUM & MAG HYDROX-SIMETH LIQ(MAALOX) 30 ML PO PRN (18:15)
[2020-12-02] MEDS ORDERED: ONDANSETRON HCL 4 MG/2 ML VIAL IV PRN (18:15)
[2020-12-02] MEDS ORDERED: ACETAMINOPHEN 325 MG TAB PO PRN (18:15)
[2020-12-02] MEDS ORDERED: LORazepam 0.5 MG TAB PO PRN (18:15)
[2020-12-02] MEDS ORDERED: MORPHINE SULF INJ 2 MG/ML SYRINGE 1ML IV PRN (18:15)
[2020-12-02] MEDS ORDERED: CLINDAMYCIN 600MG IV 50 ML IV ONE (18:15)
[2020-12-02] MEDS ORDERED: FUROSEMIDE 20 MG/2 ML VIAL IV SCH ×2 (18:47→20:00)
[2020-12-02] MEDS ORDERED: CLINDAMYCIN 600MG IV 50 ML IV SCH ×2 (18:48→19:00)
[2020-12-02] MEDS ORDERED: RIVAROXABAN 20 MG TAB PO SCH ×2 (18:51→20:00)
[2020-12-02 19:03] LABS: Cholesterol 113 mg/dL (< 200)
[2020-12-02 19:06] LABS: HDL Cholesterol 43 mg/dL (40-59); LDL Cholesterol 68 mg/dL (< 100); Triglycerides 57 mg/dL (< 150)
[2020-12-02] MEDS: FUROSEMIDE 20 MG/2 ML VIAL IV SCH (20:12)
[2020-12-02] MEDS: CLINDAMYCIN 600MG IV 50 ML IV SCH (20:12)
[2020-12-02] MEDS: RIVAROXABAN 20 MG TAB PO SCH (20:13)
[2020-12-02] MEDS: MORPHINE SULF INJ 2 MG/ML SYRINGE 1ML IV PRN (21:41)
[2020-12-02] MEDS: SODIUM CHLOR 0.9% PF (SALINE LOCK) 10ML VIAL/SYR IV SCH (21:41)
[2020-12-02] MEDS: POTASSIUM CHL 20 Meq TABLET PO SCH (21:42)
[2020-12-02] MEDS: DIGOXIN 0.125 MG TAB PO SCH (21:43)
[2020-12-02] MEDS: METOPROLOL TARTRATE 50 MG TAB PO SCH (21:47)
[2020-12-02] MEDS: AZTREONAM 1GM INJ 1 GM in D5W 5% 50 ML IV SCH (21:57)
[2020-12-02 22:00] VITALS: BP 140/88
[2020-12-03] MEDS: CLINDAMYCIN 600MG IV 50 ML IV SCH ×3 (03:51→19:58)
[2020-12-03 05:00] VITALS: BP 125/89
[2020-12-03] MEDS: FUROSEMIDE 20 MG/2 ML VIAL IV SCH ×2 (05:38→18:08)
[2020-12-03] MEDS: METOPROLOL TARTRATE 50 MG TAB PO SCH ×3 (05:38→22:15)
[2020-12-03] MEDS: AZTREONAM 1GM INJ 1 GM in D5W 5% 50 ML IV SCH ×2 (05:39→14:11)
[2020-12-03] MEDS: SODIUM CHLOR 0.9% PF (SALINE LOCK) 10ML VIAL/SYR IV SCH ×3 (05:39→22:14)
[2020-12-03] MEDS: LEVOTHYROXINE SODIUM 50 MCG TAB PO SCH (06:32)
[2020-12-03 07:08] LABS: INR 2.06 (0.9-1.15); Partial Thromboplastin Time 40.4 sec (23.0-31.2)
[2020-12-03 09:00] VITALS: BP 119/69
[2020-12-03] MEDS: ASCORBIC ACID 1,000 MG TAB PO SCH (09:24)
[2020-12-03] MEDS: POTASSIUM CHL 20 Meq TABLET PO SCH ×2 (09:24→22:14)
[2020-12-03 11:44] LABS: Chloride 105 mmol/L (98-107); Potassium 5.1 mmol/L (3.5-5.1); Sodium 139 mmol/L (136-145)
[2020-12-03 11:50] LABS: Alanine Aminotransferase 10 U/L (13-56); Albumin 1.7 g/dL (3.4-5.0); Alkaline Phosphatase 55 U/L (45-117); Anion Gap 7 (5-15); Aspartate Aminotransferase 32 U/L (15-37); BUN/Creatinine Ratio 28.8; Bilirubin, Total 0.6 mg/dL (0.2-1.0); Blood Urea Nitrogen 21 mg/dL (7-18); Calcium 7.4 mg/dL (8.5-10.1); Carbon Dioxide 27 mmol/L (21-32); GFR African American 99 mL/min; GFR Non-African American 82 mL/min; Glucose 87 mg/dL (74-106); Magnesium 1.8 mg/dL (1.6-2.6); Phosphorus 3.6 mg/dL (2.5-4.90); Total Protein 4.2 g/dL (6.4-8.2)
[2020-12-03 13:00] VITALS: BP 166/98
[2020-12-03 14:18] LABS: Basophils # (auto) 0 10 ^3/uL (0-0.2); Basophils % (auto) 0.6 % (0.0-2.0); Eosinophils # (auto) 0.1 10 ^3/uL (0-0.8); Eosinophils % (auto) 1.2 % (0.0-7.0); Hematocrit 42.3 % (36.0-46.0); Hemoglobin 13.6 g/dL (12.2-16.2); Lymphocytes # (auto) 0.6 10 ^3/uL (0.4-5.4); Lymphocytes % (auto) 8.5 % (10.0-50.0); Mean Corpuscular Hemoglobin 28.4 pg (28.0-32.0); Mean Corpuscular Hgb Conc. 32.2 g/dL (32.0-36.0); Mean Corpuscular Volume 88.1 fL (80.0-100.0); Monocytes # (auto) 0.4 10 ^3/uL (0-1.3); Monocytes % (auto) 6.1 % (0.0-12.0); Neutrophils # (auto) 5.5 10 ^3/uL (1.6-8.6); Neutrophils % (auto) 83.6 % (37.0-80.0); Nucleated Red Blood Cells % 0.1 %; Platelet Count (auto) 213 10^3/uL (140-450); Red Cell Distribution Width 16.3 % (11.8-14.3); White Blood Cell 6.6 10^3/uL (4.4-10.8)
[2020-12-03] MEDS: MORPHINE SULF INJ 2 MG/ML SYRINGE 1ML IV PRN (14:54)
[2020-12-03] MEDS ORDERED: MEROPENEM 500MG IVPB 50 ML IV ONE (15:15)
[2020-12-03] MEDS ORDERED: METOPROLOL TARTRATE 1MG/1ML-5ML VIAL IV PRN (15:15)
[2020-12-03] MEDS ORDERED: MEROPENEM 1GM IVPB 100 ML IV SCH (15:30)
[2020-12-03 17:00] VITALS: BP 156/65
[2020-12-03] MEDS: RIVAROXABAN 20 MG TAB PO SCH (18:08)
[2020-12-03 22:00] VITALS: BP 105/80
[2020-12-03] MEDS ORDERED: MEROPENEM 500MG IVPB 50 ML IV SCH (22:00)
[2020-12-03] MEDS: DIGOXIN 0.125 MG TAB PO SCH (22:15)
[2020-12-04] MEDS ORDERED: CLINDAMYCIN 600MG IV 50 ML IV SCH (03:30)
[2020-12-04] MEDS ORDERED: MEROPENEM 1GM IVPB 100 ML IV SCH (04:00)
[2020-12-04 05:00] VITALS: BP 120/77
[2020-12-04 05:27] LABS: Basophils # (auto) 0 10 ^3/uL (0-0.2); Basophils % (auto) 0.5 % (0.0-2.0); Eosinophils # (auto) 0 10 ^3/uL (0-0.8); Eosinophils % (auto) 0.8 % (0.0-7.0); Hemoglobin 11.7 g/dL (12.2-16.2); Lymphocytes # (auto) 0.6 10 ^3/uL (0.4-5.4); Lymphocytes % (auto) 10.6 % (10.0-50.0); Mean Corpuscular Hemoglobin 29.2 pg (28.0-32.0); Mean Corpuscular Hgb Conc. 33.3 g/dL (32.0-36.0); Mean Corpuscular Volume 87.5 fL (80.0-100.0); Monocytes # (auto) 0.5 10 ^3/uL (0-1.3); Neutrophils # (auto) 4.1 10 ^3/uL (1.6-8.6); Neutrophils % (auto) 78.1 % (37.0-80.0); Nucleated Red Blood Cells % 0.1 %; Platelet Count (auto) 173 10^3/uL (140-450); Red Blood Cells 4.01 10^6/uL (4.0-5.20); Red Cell Distribution Width 16.4 % (11.8-14.3); White Blood Cell 5.3 10^3/uL (4.4-10.8)
[2020-12-04] MEDS: SODIUM CHLOR 0.9% PF (SALINE LOCK) 10ML VIAL/SYR IV SCH ×3 (05:35→21:36)
[2020-12-04] MEDS: METOPROLOL TARTRATE 50 MG TAB PO SCH ×3 (05:36→21:42)
[2020-12-04] MEDS: FUROSEMIDE 20 MG/2 ML VIAL IV SCH ×2 (05:36→18:03)
[2020-12-04] MEDS: LEVOTHYROXINE SODIUM 50 MCG TAB PO SCH (05:36)
[2020-12-04 05:42] LABS: INR 1.89 (0.9-1.15); Partial Thromboplastin Time 39.6 sec (23.0-31.2)
[2020-12-04 05:45] LABS: Calcium 7.1 mg/dL (8.5-10.1)
[2020-12-04 05:51] LABS: Albumin 2.3 g/dL (3.4-5.0); Bilirubin, Total 0.9 mg/dL (0.2-1.0); Magnesium 1.9 mg/dL (1.6-2.6); Phosphorus 3.9 mg/dL (2.5-4.90); Total Protein 5.6 g/dL (6.4-8.2)
[2020-12-04 08:49] VITALS: BP 115/74
[2020-12-04] MEDS: ASCORBIC ACID 1,000 MG TAB PO SCH (09:13)
[2020-12-04] MEDS: POTASSIUM CHL 20 Meq TABLET PO SCH ×2 (09:13→21:35)
[2020-12-04] MEDS ORDERED: ZINC SULFATE 220mg CAP or TAB PO ONE (10:30)
[2020-12-04 13:06] VITALS: BP 131/79
[2020-12-04 17:08] VITALS: BP 128/72
[2020-12-04] MEDS: Ensure HIGH Protein Vanilla 8oz Bottle PO SCH (18:03)
[2020-12-04] MEDS: RIVAROXABAN 20 MG TAB PO SCH (18:03)
[2020-12-04 21:30] VITALS: BP 125/80
[2020-12-04] MEDS: DIGOXIN 0.125 MG TAB PO SCH (21:41)
[2020-12-05 05:30] VITALS: BP 141/75
[2020-12-05] MEDS: FUROSEMIDE 20 MG/2 ML VIAL IV SCH ×2 (05:42→17:25)
[2020-12-05] MEDS: METOPROLOL TARTRATE 50 MG TAB PO SCH ×3 (05:43→21:51)
[2020-12-05] MEDS: SODIUM CHLOR 0.9% PF (SALINE LOCK) 10ML VIAL/SYR IV SCH ×3 (05:44→21:51)
[2020-12-05] MEDS: LEVOTHYROXINE SODIUM 50 MCG TAB PO SCH (06:30)
[2020-12-05 08:00] VITALS: BP 135/85
[2020-12-05] MEDS: Ensure HIGH Protein Vanilla 8oz Bottle PO SCH ×2 (08:00→18:20)
[2020-12-05] MEDS: ZINC SULFATE 220mg CAP or TAB PO SCH (09:38)
[2020-12-05] MEDS: POTASSIUM CHL 20 Meq TABLET PO SCH ×2 (09:38→21:24)
[2020-12-05] MEDS: ERTAPENEM SOD INJ 1 GM in SODIUM CHL 0.9% 50 ML IV SCH (09:38)
[2020-12-05] MEDS: ASCORBIC ACID 1,000 MG TAB PO SCH (09:38)
[2020-12-05 11:58] VITALS: BP 123/83
[2020-12-05 16:00] VITALS: BP 133/73
[2020-12-05] MEDS: RIVAROXABAN 20 MG TAB PO SCH (17:26)
[2020-12-05] MEDS: DIGOXIN 0.125 MG TAB PO SCH (21:50)
[2020-12-05 22:00] VITALS: BP 144/86
[2020-12-05] MEDS: MORPHINE SULF INJ 2 MG/ML SYRINGE 1ML IV PRN (22:07)
[2020-12-06 05:00] VITALS: BP 147/87
[2020-12-06] MEDS: MORPHINE SULF INJ 2 MG/ML SYRINGE 1ML IV PRN (05:13)
[2020-12-06] MEDS: FUROSEMIDE 20 MG/2 ML VIAL IV SCH ×2 (05:14→17:40)
[2020-12-06] MEDS: METOPROLOL TARTRATE 50 MG TAB PO SCH ×2 (05:14→14:26)
[2020-12-06] MEDS: SODIUM CHLOR 0.9% PF (SALINE LOCK) 10ML VIAL/SYR IV SCH ×2 (05:15→14:26)
[2020-12-06] MEDS: LEVOTHYROXINE SODIUM 50 MCG TAB PO SCH (06:16)
[2020-12-06 08:00] VITALS: BP 121/81
[2020-12-06] MEDS: Ensure HIGH Protein Vanilla 8oz Bottle PO SCH ×2 (08:00→17:40)
[2020-12-06] MEDS: ASCORBIC ACID 1,000 MG TAB PO SCH (10:07)
[2020-12-06] MEDS: POTASSIUM CHL 20 Meq TABLET PO SCH (10:07)
[2020-12-06] MEDS: ZINC SULFATE 220mg CAP or TAB PO SCH (10:07)
[2020-12-06] MEDS: ERTAPENEM SOD INJ 1 GM in SODIUM CHL 0.9% 50 ML IV SCH (10:08)
[2020-12-06 11:09] VITALS: BP 147/87
[2020-12-06 12:00] VITALS: BP 123/87
[2020-12-06 12:01] LABS: Potassium 4.3 mmol/L (3.5-5.1)
[2020-12-06 12:12] LABS: BUN/Creatinine Ratio 41.8; Calcium 8.1 mg/dL (8.5-10.1)
[2020-12-06 16:00] VITALS: BP 125/73
[2020-12-06] MEDS: RIVAROXABAN 20 MG TAB PO SCH (17:40)
[2020-12-06] MEDS ORDERED: FAMOTIDINE 20 MG TAB PO ONE (18:00)
[2020-12-07] MEDS ORDERED: FAMOTIDINE 20 MG TAB PO SCH (10:00)
== END 2020-12-06 18:30 | disposition home health service (06) | DRG 299 ==
LOC: ER 11:14 → TELE 17:41 → TELE-CENTR 22:14
PROVIDERS: ADMIT Hospitalist; ATTEND Internal Medicine
PROC: 05HB33Z Insertion of Infusion Device into Right Basilic Vein, Percutaneous Approach (ICD-10-PCS; principal; 2020-12-05)
PROC: B54MZZA Ultrasonography of Right Upper Extremity Veins, Guidance (ICD-10-PCS; 2020-12-05)
DX: I87.2 Venous insufficiency (chronic) (peripheral) (principal); I50.43 Acute on chronic combined systolic (congestive) and diastolic (congestive) heart failure; A41.9 Sepsis, unspecified organism; E43 Unspecified severe protein-calorie malnutrition; L03.116 Cellulitis of left lower limb; I48.20 Chronic atrial fibrillation, unspecified; L97.929 Non-pressure chronic ulcer of unspecified part of left lower leg with unspecified severity; L97.919 Non-pressure chronic ulcer of unspecified part of right lower leg with unspecified severity; D68.69 Other thrombophilia; J96.10 Chronic respiratory failure, unspecified whether with hypoxia or hypercapnia; L03.114 Cellulitis of left upper limb; I49.5 Sick sinus syndrome; I11.0 Hypertensive heart disease with heart failure; E78.5 Hyperlipidemia, unspecified; I73.9 Peripheral vascular disease, unspecified; Z20.822 Contact with and (suspected) exposure to COVID-19; I27.20 Pulmonary hypertension, unspecified; E03.9 Hypothyroidism, unspecified; Z88.1 Allergy status to other antibiotic agents; Z98.61 Coronary angioplasty status; Z82.49 Family history of ischemic heart disease and other diseases of the circulatory system; Z95.0 Presence of cardiac pacemaker; J44.9 Chronic obstructive pulmonary disease, unspecified; M19.90 Unspecified osteoarthritis, unspecified site
CPT/HCPCS: 36415; 71045; 73030; 80048; 80053; 80061; 80162; 81001; 82306; 83036; 83605; 83615; 83735; 83880; 84100; 84443; 84484; 84550; 85025; 85610; 85730; 86141; 87040; 87077; 87186; 87205; 87426; 93005; 93970; 96365; 96366; G0378; J1335; J2185; J3490; J7060

== ENCOUNTER 2020-12-06 23:06 | Emergency (ER) | payer MEDICARE ==
[~2020-12-06] VITALS: Ht 167.6 cm; Wt 54.4 kg
[~2020-12-06 23:06] MED LIST changes: +FURO40TA4 PO; +POTA-220 PO; -TORS20TA19 PO
[2020-12-07 00:46] LABS: INR 1.76 (0.9-1.15); Partial Thromboplastin Time 37.6 sec (23.0-31.2)
[2020-12-07 05:10] VITALS: BP 157/91
== END 2020-12-07 06:22 | disposition home or self-care (01) ==
LOC: EDBD 23:06 → ER 23:06
DX: T82.838A Hemorrhage due to vascular prosthetic devices, implants and grafts, initial encounter (principal); I48.91 Unspecified atrial fibrillation; I11.0 Hypertensive heart disease with heart failure; I73.9 Peripheral vascular disease, unspecified; I50.43 Acute on chronic combined systolic (congestive) and diastolic (congestive) heart failure; E03.9 Hypothyroidism, unspecified; E44.0 Moderate protein-calorie malnutrition; Z95.0 Presence of cardiac pacemaker; Z98.61 Coronary angioplasty status; Z68.1 Body mass index [BMI] 19.9 or less, adult; Z79.899 Other long term (current) drug therapy; Z88.1 Allergy status to other antibiotic agents
CPT/HCPCS: 36415; 85610; 85730

== ENCOUNTER → 2020-12-27 | Outpatient (CLI) | payer MEDICARE ==
[~2020-12-27] MED LIST changes: +CYANOCOBALAMIN (B-12) 1000 MCG/1 ML VIAL IM ONE; +CYANOCOBALAMIN (B-12) 1000 MCG/1 ML VIAL ONE
[2020-12-27 11:00] VITALS: BP 117/75
[2020-12-27 11:50] VITALS: BP 117/77
[2020-12-27 15:25] LABS: Basophils # (auto) 0 10 ^3/uL (0-0.2); Eosinophils # (auto) 0 10 ^3/uL (0-0.8); Eosinophils % (auto) 0.2 % (0.0-7.0); Hematocrit 36.6 % (36.0-46.0); Hemoglobin 12.1 g/dL (12.2-16.2); Lymphocytes # (auto) 0.6 10 ^3/uL (0.4-5.4); Lymphocytes % (auto) 14.5 % (10.0-50.0); Mean Corpuscular Hemoglobin 28.2 pg (28.0-32.0); Mean Corpuscular Hgb Conc. 33.1 g/dL (32.0-36.0); Mean Corpuscular Volume 85.2 fL (80.0-100.0); Monocytes # (auto) 0.5 10 ^3/uL (0-1.3); Monocytes % (auto) 11.5 % (0.0-12.0); Neutrophils # (auto) 3.3 10 ^3/uL (1.6-8.6); Neutrophils % (auto) 72.8 % (37.0-80.0); Nucleated Red Blood Cells % 0.1 %; Red Cell Distribution Width 18.5 % (11.8-14.3); White Blood Cell 4.5 10^3/uL (4.4-10.8)
[2020-12-27 15:34] LABS: Potassium 3.6 mmol/L (3.5-5.1)
[2020-12-27 15:39] LABS: Albumin 3.1 g/dL (3.4-5.0); BUN/Creatinine Ratio 13.7; Calcium 8.6 mg/dL (8.5-10.1); Magnesium 1.9 mg/dL (1.6-2.6)
[2020-12-27 15:41] LABS: Total Protein 6.9 g/dL (6.4-8.2)
== END | disposition home or self-care (01) ==
LOC: CHF HDHVI 10:50
PROVIDERS: ATTEND Internal Medicine Cardiovascular Disease
DX: I27.0 Primary pulmonary hypertension (principal); I50.23 Acute on chronic systolic (congestive) heart failure; R53.83 Other fatigue; I48.20 Chronic atrial fibrillation, unspecified; J44.9 Chronic obstructive pulmonary disease, unspecified; J96.11 Chronic respiratory failure with hypoxia; E78.5 Hyperlipidemia, unspecified; E87.6 Hypokalemia; E03.9 Hypothyroidism, unspecified; I73.9 Peripheral vascular disease, unspecified; Z95.0 Presence of cardiac pacemaker; Z79.899 Other long term (current) drug therapy
CPT/HCPCS: 36415; 80053; 83735; 83880; 85025; 85049; 96372; G0463; J3420

== ENCOUNTER → 2021-01-24 | Outpatient (CLI) | payer MEDICARE ==
[2021-01-24 10:05] VITALS: BP 111/55
[2021-01-24 10:26] VITALS: BP 117/71
[2021-01-24 11:59] LABS: Albumin 2.8 g/dL (3.4-5.0); Calcium 8.4 mg/dL (8.5-10.1); Potassium 3.7 mmol/L (3.5-5.1)
[2021-01-24 12:03] LABS: BUN/Creatinine Ratio 20.8; Bilirubin, Total 1.1 mg/dL (0.2-1.0); Total Protein 6.8 g/dL (6.4-8.2)
[2021-01-24 12:04] LABS: Basophils # (auto) 0.1 10 ^3/uL (0-0.2); Basophils % (auto) 1.3 % (0.0-2.0); Eosinophils # (auto) 0.1 10 ^3/uL (0-0.8); Hematocrit 32.1 % (36.0-46.0); Hemoglobin 10.6 g/dL (12.2-16.2); Lymphocytes # (auto) 0.3 10 ^3/uL (0.4-5.4); Lymphocytes % (auto) 5.5 % (10.0-50.0); Mean Corpuscular Hemoglobin 27.4 pg (28.0-32.0); Mean Corpuscular Volume 83.1 fL (80.0-100.0); Monocytes # (auto) 0.7 10 ^3/uL (0-1.3); Monocytes % (auto) 11.4 % (0.0-12.0); Neutrophils # (auto) 4.7 10 ^3/uL (1.6-8.6); Neutrophils % (auto) 80.8 % (37.0-80.0); Nucleated Red Blood Cells % 0.1 %; Red Blood Cells 3.86 10^6/uL (4.0-5.20); White Blood Cell 5.8 10^3/uL (4.4-10.8)
[2021-01-24 12:18] LABS: Red Cell Distribution Width 22.7 % (11.8-14.3)
== END | disposition home or self-care (01) ==
LOC: CHF HDHVI 10:05
PROVIDERS: ATTEND Internal Medicine Cardiovascular Disease
DX: I27.21 Secondary pulmonary arterial hypertension (principal); M19.012 Primary osteoarthritis, left shoulder; M25.422 Effusion, left elbow; I11.0 Hypertensive heart disease with heart failure; I50.42 Chronic combined systolic (congestive) and diastolic (congestive) heart failure; I48.20 Chronic atrial fibrillation, unspecified; J96.10 Chronic respiratory failure, unspecified whether with hypoxia or hypercapnia; J44.9 Chronic obstructive pulmonary disease, unspecified; E78.5 Hyperlipidemia, unspecified; E03.9 Hypothyroidism, unspecified; Z79.899 Other long term (current) drug therapy; Z95.0 Presence of cardiac pacemaker
CPT/HCPCS: 36415; 73030; 73080; 80053; 83735; 83880; 85025; 96372; G0463; J3420

== ENCOUNTER 2021-06-06 15:00 | Inpatient (IN) | payer MEDICARE ==
[~2021-06-06] VITALS: Ht 167.6 cm; Wt 68.5 kg
[~2021-06-06 15:00] MED LIST changes: -HYDR-4072 PO; -TORS20TA19 PO; -TRAM50TA2 PO
[2021-06-06] MEDS ORDERED: NITROGLYCERIN 0.4 MG SL TAB SL PRN (15:15)
[2021-06-06] MEDS ORDERED: MORPHINE SULFATE INJECTION 2 MG/ML SYRG IV PRN (15:15)
[2021-06-06] MEDS ORDERED: DOBUTamine 1000MCG/ML 250 ML IV SCH (15:15)
[2021-06-06 15:40] VITALS: BP 118/73
[2021-06-06] MEDS: FUROSEMIDE INJECTION 100 MG in D5W 5% 100 ML IV SCH ×3 (16:47→23:42)
[2021-06-06] MEDS: DOBUTamine 1000MCG/ML 250 ML IV SCH (17:28)
[2021-06-06 20:38] LABS: Urine Bacteria NONE SEEN /hpf (None Seen); Urine Blood TRACE /uL (Negative); Urine Specific Gravity 1.007 (1.001-1.035); Urine WBC 1 /hpf (0 - 5)
[2021-06-06 22:00] VITALS: BP 112/73
[2021-06-06 22:04] LABS: Hematocrit 23.7 % (36.0-46.0); Mean Corpuscular Hgb Conc. 29.3 g/dL (32.0-36.0); Mean Corpuscular Volume 64.9 fL (80.0-100.0); Red Blood Cells 3.65 10^6/uL (4.0-5.20); White Blood Cell 2.5 10^3/uL (4.4-10.8)
[2021-06-06 22:14] LABS: Hemoglobin 6.9 g/dL (12.2-16.2); Red Cell Distribution Width 22.2 % (11.8-14.3)
[2021-06-06 22:15] LABS: Band Neutrophils % (manual) 0; Basophils % (manual) 0 (0.0-2.0); Blast Cells 0; Metamyelocytes % 0; Myelocytes % 0; Promyelocytes % 0; Reactive Lymphocytes 0
[2021-06-06 22:30] LABS: Albumin 2.9 g/dL (3.4-5.0); Calcium 8.3 mg/dL (8.5-10.1); Potassium 3.3 mmol/L (3.5-5.1)
[2021-06-06 22:34] LABS: BUN/Creatinine Ratio 23.8; Total Protein 6.1 g/dL (6.4-8.2)
[2021-06-06] MEDS ORDERED: FUROSEMIDE INJECTION 10 ML ONE (22:48)
[2021-06-06] MEDS: POTASSIUM EFFERVESENT TAB 25 MEQ PO SCH (22:51)
[2021-06-06] MEDS: DIGOXIN 0.125 MG TAB PO SCH (22:52)
[2021-06-06] MEDS: METOPROLOL TARTRATE 50 MG TAB PO SCH (22:53)
[2021-06-06 23:10] LABS: Lymphocytes % (manual) 27 (10.0-50.0); Monocytes % (manual) 15 (0-12)
[2021-06-06 23:11] LABS: Eosinophils % (manual) 1 (0-7)
[2021-06-07] VITALS (11 sets, daily range): BP systolic 93–135; BP diastolic 45–87
[2021-06-07] MEDS ORDERED: FUROSEMIDE INJECTION 10 ML ONE (03:11)
[2021-06-07] MEDS: FUROSEMIDE INJECTION 100 MG in D5W 5% 100 ML IV SCH ×5 (03:58→23:02)
[2021-06-07] MEDS: METOPROLOL TARTRATE 50 MG TAB PO SCH ×3 (06:13→21:52)
[2021-06-07] MEDS: LEVOTHYROXINE SODIUM 50 MCG TAB PO SCH (06:13)
[2021-06-07] MEDS ORDERED: TRAM50TA2 PO (09:14)
[2021-06-07] MEDS ORDERED: HYDR-4072 PO (09:14)
[2021-06-07] MEDS ORDERED: TORS20TA19 PO (09:14)
[2021-06-07] MEDS: POTASSIUM EFFERVESENT TAB 25 MEQ PO SCH ×2 (10:28→21:51)
[2021-06-07] MEDS: ASCORBIC ACID 1,000 MG TAB PO SCH (10:30)
[2021-06-07] MEDS: HYDROcodone-ACET 5/325MG TAB PO PRN (10:31)
[2021-06-07] MEDS: DOBUTamine 1000MCG/ML 250 ML IV SCH (13:56)
[2021-06-07] MEDS: RIVAROXABAN 20 MG TAB PO SCH (18:10)
[2021-06-07] MEDS: DIGOXIN 0.125 MG TAB PO SCH (21:51)
[2021-06-08 01:00] VITALS: BP 132/70
[2021-06-08] MEDS: FUROSEMIDE INJECTION 100 MG in D5W 5% 100 ML IV SCH ×4 (03:16→19:45)
[2021-06-08] MEDS ORDERED: FUROSEMIDE INJECTION 10 ML ONE (05:04)
[2021-06-08 05:51] VITALS: BP 106/65
[2021-06-08] MEDS: METOPROLOL TARTRATE 50 MG TAB PO SCH ×4 (05:54→21:50)
[2021-06-08] MEDS: LEVOTHYROXINE SODIUM 50 MCG TAB PO SCH (06:00)
[2021-06-08 07:48] LABS: Potassium 4.3 mmol/L (3.5-5.1)
[2021-06-08 07:55] LABS: BUN/Creatinine Ratio 22.7; Calcium 8.4 mg/dL (8.5-10.1)
[2021-06-08 08:44] LABS: Basophils # (auto) 0.1 10 ^3/uL (0-0.2); Basophils % (auto) 1.8 % (0.0-2.0); Eosinophils # (auto) 0.1 10 ^3/uL (0-0.8); Eosinophils % (auto) 3.4 % (0.0-7.0); Hematocrit 30.1 % (36.0-46.0); Lymphocytes # (auto) 0.9 10 ^3/uL (0.4-5.4); Mean Corpuscular Hemoglobin 20.5 pg (28.0-32.0); Mean Corpuscular Hgb Conc. 29.9 g/dL (32.0-36.0); Mean Corpuscular Volume 68.5 fL (80.0-100.0); Monocytes # (auto) 0.5 10 ^3/uL (0-1.3); Neutrophils # (auto) 2.2 10 ^3/uL (1.6-8.6); Neutrophils % (auto) 58.8 % (37.0-80.0); Nucleated Red Blood Cells % 0.4 %; Red Cell Distribution Width 24.7 % (11.8-14.3); White Blood Cell 3.8 10^3/uL (4.4-10.8)
[2021-06-08 09:00] VITALS: BP 116/73
[2021-06-08] MEDS: POTASSIUM EFFERVESENT TAB 25 MEQ PO SCH ×2 (09:33→20:49)
[2021-06-08] MEDS: ASCORBIC ACID 1,000 MG TAB PO SCH (09:33)
[2021-06-08 13:00] VITALS: BP 123/60
[2021-06-08 17:00] VITALS: BP 114/53
[2021-06-08] MEDS: DOBUTamine 1000MCG/ML 250 ML IV SCH (17:18)
[2021-06-08] MEDS: RIVAROXABAN 20 MG TAB PO SCH (17:29)
[2021-06-08] MEDS: DIGOXIN 0.125 MG TAB PO SCH (20:50)
[2021-06-08] MEDS: HYDROcodone-ACET 5/325MG TAB PO PRN (20:51)
[2021-06-08 21:59] VITALS: BP 120/69
[2021-06-09] MEDS: FUROSEMIDE INJECTION 100 MG in D5W 5% 100 ML IV SCH ×5 (00:45→22:12)
[2021-06-09 04:50] VITALS: BP 124/73
[2021-06-09] MEDS: METOPROLOL TARTRATE 50 MG TAB PO SCH ×3 (05:36→22:13)
[2021-06-09] MEDS: LEVOTHYROXINE SODIUM 50 MCG TAB PO SCH (05:37)
[2021-06-09 08:00] VITALS: BP 89/54
[2021-06-09 09:00] VITALS: BP 89/54
[2021-06-09] MEDS: ASCORBIC ACID 1,000 MG TAB PO SCH (10:03)
[2021-06-09] MEDS: POTASSIUM EFFERVESENT TAB 25 MEQ PO SCH ×2 (10:03→21:50)
[2021-06-09] MEDS: DOBUTamine 1000MCG/ML 250 ML IV SCH (17:45)
[2021-06-09] MEDS: RIVAROXABAN 20 MG TAB PO SCH (17:45)
[2021-06-09 22:00] VITALS: BP 126/60
[2021-06-09] MEDS: DIGOXIN 0.125 MG TAB PO SCH (22:12)
[2021-06-10] MEDS: HYDROcodone-ACET 5/325MG TAB PO PRN (00:35)
[2021-06-10] MEDS: FUROSEMIDE INJECTION 100 MG in D5W 5% 100 ML IV SCH ×5 (02:04→21:50)
[2021-06-10 05:00] VITALS: BP 109/57
[2021-06-10] MEDS: LEVOTHYROXINE SODIUM 50 MCG TAB PO SCH (06:57)
[2021-06-10] MEDS: METOPROLOL TARTRATE 50 MG TAB PO SCH ×3 (06:57→21:51)
[2021-06-10 08:00] VITALS: BP 88/52
[2021-06-10] MEDS: ASCORBIC ACID 1,000 MG TAB PO SCH (09:49)
[2021-06-10] MEDS: POTASSIUM EFFERVESENT TAB 25 MEQ PO SCH ×2 (09:49→21:51)
[2021-06-10 13:43] LABS: Basophils # (auto) 0 10 ^3/uL (0-0.2); Eosinophils # (auto) 0.1 10 ^3/uL (0-0.8); Hemoglobin 8.5 g/dL (12.2-16.2); Mean Corpuscular Hemoglobin 20.6 pg (28.0-32.0)
[2021-06-10 13:45] LABS: Basophils % (auto) 1.4 % (0.0-2.0); Eosinophils % (auto) 4.2 % (0.0-7.0); Hematocrit 28.1 % (36.0-46.0); Lymphocytes # (auto) 0.9 10 ^3/uL (0.4-5.4); Lymphocytes % (auto) 37.3 % (10.0-50.0); Mean Corpuscular Hgb Conc. 30.2 g/dL (32.0-36.0); Mean Corpuscular Volume 68.3 fL (80.0-100.0); Monocytes # (auto) 0.3 10 ^3/uL (0-1.3); Monocytes % (auto) 11.2 % (0.0-12.0); Neutrophils # (auto) 1.1 10 ^3/uL (1.6-8.6); Neutrophils % (auto) 45.9 % (37.0-80.0); Nucleated Red Blood Cells % 0.2 %; Red Blood Cells 4.12 10^6/uL (4.0-5.20); White Blood Cell 2.4 10^3/uL (4.4-10.8)
[2021-06-10 13:46] LABS: Red Cell Distribution Width 25.2 % (11.8-14.3)
[2021-06-10 14:00] LABS: BUN/Creatinine Ratio 26.2; Potassium 4.5 mmol/L (3.5-5.1)
[2021-06-10] MEDS: RIVAROXABAN 20 MG TAB PO SCH (16:46)
[2021-06-10] MEDS: DOBUTamine 1000MCG/ML 250 ML IV SCH (18:07)
[2021-06-10] MEDS: DIGOXIN 0.125 MG TAB PO SCH (21:51)
[2021-06-10 22:00] VITALS: BP 131/66
[2021-06-11] MEDS: FUROSEMIDE INJECTION 100 MG in D5W 5% 100 ML IV SCH ×5 (02:45→22:45)
[2021-06-11 05:00] VITALS: BP 110/70
[2021-06-11 05:30] VITALS: BP 98/57
[2021-06-11] MEDS: METOPROLOL TARTRATE 50 MG TAB PO SCH ×3 (05:33→21:15)
[2021-06-11] MEDS: LEVOTHYROXINE SODIUM 50 MCG TAB PO SCH (05:33)
[2021-06-11 09:02] VITALS: BP 101/70
[2021-06-11] MEDS: ASCORBIC ACID 1,000 MG TAB PO SCH (10:01)
[2021-06-11] MEDS: POTASSIUM EFFERVESENT TAB 25 MEQ PO SCH ×2 (10:02→21:13)
[2021-06-11 13:00] VITALS: BP 119/60
[2021-06-11 14:25] VITALS: BP 135/61
[2021-06-11] MEDS: DOBUTamine 1000MCG/ML 250 ML IV SCH (17:48)
[2021-06-11] MEDS: RIVAROXABAN 20 MG TAB PO SCH (18:16)
[2021-06-11] MEDS: DIGOXIN 0.125 MG TAB PO SCH (21:15)
[2021-06-11 22:00] VITALS: BP 114/71
[2021-06-12] MEDS: FUROSEMIDE INJECTION 100 MG in D5W 5% 100 ML IV SCH ×7 (03:55→22:25)
[2021-06-12 05:00] VITALS: BP 122/68
[2021-06-12] MEDS: LEVOTHYROXINE SODIUM 50 MCG TAB PO SCH (06:02)
[2021-06-12] MEDS: METOPROLOL TARTRATE 50 MG TAB PO SCH ×3 (06:02→21:08)
[2021-06-12 09:00] VITALS: BP 107/58
[2021-06-12] MEDS: ASCORBIC ACID 1,000 MG TAB PO SCH (10:07)
[2021-06-12] MEDS: POTASSIUM EFFERVESENT TAB 25 MEQ PO SCH ×2 (10:07→21:08)
[2021-06-12 12:25] LABS: Mean Corpuscular Volume 67.1 fL (80.0-100.0); White Blood Cell 3.9 10^3/uL (4.4-10.8)
[2021-06-12 12:27] LABS: Hematocrit 28.2 % (36.0-46.0); Hemoglobin 8.6 g/dL (12.2-16.2); Mean Corpuscular Hemoglobin 20.6 pg (28.0-32.0); Mean Corpuscular Hgb Conc. 30.7 g/dL (32.0-36.0)
[2021-06-12 12:29] LABS: Red Cell Distribution Width 25.4 % (11.8-14.3)
[2021-06-12 12:30] LABS: Basophils % (manual) 0 (0.0-2.0); Blast Cells 0; Metamyelocytes % 0; Myelocytes % 0; Promyelocytes % 0; Reactive Lymphocytes 0
[2021-06-12 12:41] LABS: BUN/Creatinine Ratio 23.3; Calcium 8.1 mg/dL (8.5-10.1); Potassium 4.3 mmol/L (3.5-5.1)
[2021-06-12 12:51] LABS: Band Neutrophils % (manual) 2; Eosinophils % (manual) 3 (0-7); Lymphocytes % (manual) 24 (10.0-50.0); Monocytes % (manual) 5 (0-12)
[2021-06-12 17:00] VITALS: BP 111/68
[2021-06-12] MEDS: DOBUTamine 1000MCG/ML 250 ML IV SCH (17:42)
[2021-06-12] MEDS: DIGOXIN 0.125 MG TAB PO SCH (21:08)
[2021-06-12 22:00] VITALS: BP 110/65
[2021-06-13] MEDS: FUROSEMIDE INJECTION 100 MG in D5W 5% 100 ML IV SCH ×4 (02:59→22:17)
[2021-06-13 05:00] VITALS: BP 121/63
[2021-06-13] MEDS: LEVOTHYROXINE SODIUM 50 MCG TAB PO SCH (06:24)
[2021-06-13] MEDS: METOPROLOL TARTRATE 50 MG TAB PO SCH ×3 (06:24→22:05)
[2021-06-13] MEDS: ASCORBIC ACID 1,000 MG TAB PO SCH (10:00)
[2021-06-13] MEDS: POTASSIUM EFFERVESENT TAB 25 MEQ PO SCH ×2 (10:00→22:06)
[2021-06-13 10:30] VITALS: BP 104/59
[2021-06-13 15:00] VITALS: BP 102/69
[2021-06-13] MEDS: DOBUTamine 1000MCG/ML 250 ML IV SCH (17:30)
[2021-06-13 20:00] VITALS: BP 121/58
[2021-06-13] MEDS: DIGOXIN 0.125 MG TAB PO SCH (22:06)
[2021-06-14] MEDS: FUROSEMIDE INJECTION 100 MG in D5W 5% 100 ML IV SCH ×2 (04:25→10:45)
[2021-06-14] MEDS: METOPROLOL TARTRATE 50 MG TAB PO SCH ×2 (06:00→14:00)
[2021-06-14] MEDS: POTASSIUM EFFERVESENT TAB 25 MEQ PO SCH (10:45)
[2021-06-14] MEDS: LEVOTHYROXINE SODIUM 50 MCG TAB PO SCH (10:46)
[2021-06-14] MEDS: ASCORBIC ACID 1,000 MG TAB PO SCH (10:46)
== END 2021-06-14 19:30 | disposition home or self-care (01) | DRG 291 ==
LOC: TELE-EAST 15:00 → TELE-WESTW 06-07 02:50
PROVIDERS: ADMIT Internal Medicine Cardiovascular Disease; ATTEND Internal Medicine Cardiovascular Disease
PROC: 30233N1 Transfusion of Nonautologous Red Blood Cells into Peripheral Vein, Percutaneous Approach (ICD-10-PCS; principal; 2021-06-07)
DX: I11.0 Hypertensive heart disease with heart failure (principal); I50.43 Acute on chronic combined systolic (congestive) and diastolic (congestive) heart failure; D68.59 Other primary thrombophilia; E87.4 Mixed disorder of acid-base balance; E44.0 Moderate protein-calorie malnutrition; R64 Cachexia; D64.9 Anemia, unspecified; E87.6 Hypokalemia; I48.91 Unspecified atrial fibrillation; Z20.822 Contact with and (suspected) exposure to COVID-19; J44.9 Chronic obstructive pulmonary disease, unspecified; I49.5 Sick sinus syndrome; G47.33 Obstructive sleep apnea (adult) (pediatric); K64.9 Unspecified hemorrhoids; Z82.49 Family history of ischemic heart disease and other diseases of the circulatory system; Z95.0 Presence of cardiac pacemaker; Z98.61 Coronary angioplasty status; Z68.25 Body mass index [BMI] 25.0-25.9, adult
CPT/HCPCS: 36415; 80048; 80053; 80162; 81001; 85007; 85025; 85027; 86850; 86900; 86901; 86920; 87426; 93306; G0378; J7060

== ENCOUNTER → 2021-06-06 | Outpatient (CLI) | payer MEDICARE ==
[~2021-06-06] MED LIST changes: +BUMETANIDE 2.5mg/10ml (0.25 mg/ml) INJ IV ONE; +BUMETANIDE INJECTION 20 ML ONE; -CYANOCOBALAMIN (B-12) 1000 MCG/1 ML VIAL IM ONE; -CYANOCOBALAMIN (B-12) 1000 MCG/1 ML VIAL ONE; +HYDR-4072 PO; +TORS20TA19 PO; +TRAM50TA2 PO
[2021-06-06 12:30] VITALS: BP 127/65
[2021-06-06 13:19] LABS: White Blood Cell 3.1 10^3/uL (4.4-10.8)
[2021-06-06 13:21] LABS: Hematocrit 25.7 % (36.0-46.0); Hemoglobin 7.5 g/dL (12.2-16.2); Mean Corpuscular Hemoglobin 19.2 pg (28.0-32.0); Mean Corpuscular Hgb Conc. 29.4 g/dL (32.0-36.0); Mean Corpuscular Volume 65.3 fL (80.0-100.0); Red Blood Cells 3.93 10^6/uL (4.0-5.20)
[2021-06-06 13:22] LABS: Red Cell Distribution Width 21.8 % (11.8-14.3)
[2021-06-06 13:23] LABS: Basophils % (manual) 0 (0.0-2.0); Blast Cells 0; Promyelocytes % 0; Reactive Lymphocytes 0
[2021-06-06 13:36] LABS: Albumin 3.1 g/dL (3.4-5.0); Calcium 8.6 mg/dL (8.5-10.1); Magnesium 2.6 mg/dL (1.6-2.6); Potassium 3.7 mmol/L (3.5-5.1)
[2021-06-06 13:39] LABS: Bilirubin, Total 1.4 mg/dL (0.2-1.0); Total Protein 6.8 g/dL (6.4-8.2)
[2021-06-06 13:40] LABS: Band Neutrophils % (manual) 5; Eosinophils % (manual) 2 (0-7); Lymphocytes % (manual) 30 (10.0-50.0); Metamyelocytes % 3; Monocytes % (manual) 14 (0-12); Myelocytes % 1
[2021-06-06 14:45] VITALS: BP 120/60
== END | disposition home or self-care (01) ==
LOC: CHF HDHVI 12:28
PROVIDERS: ATTEND Internal Medicine Cardiovascular Disease
DX: I11.0 Hypertensive heart disease with heart failure (principal); I50.42 Chronic combined systolic (congestive) and diastolic (congestive) heart failure; J44.9 Chronic obstructive pulmonary disease, unspecified; J96.10 Chronic respiratory failure, unspecified whether with hypoxia or hypercapnia; I48.20 Chronic atrial fibrillation, unspecified; E78.5 Hyperlipidemia, unspecified; E03.9 Hypothyroidism, unspecified; M19.012 Primary osteoarthritis, left shoulder; Z95.0 Presence of cardiac pacemaker; Z79.899 Other long term (current) drug therapy
CPT/HCPCS: 36415; 80053; 83735; 83880; 85007; 85027; 96374; G0463

== ENCOUNTER → 2021-06-06 | Outpatient (CLI) | payer MEDICARE ==
[~2021-06-06] MED LIST changes: -BUMETANIDE 2.5mg/10ml (0.25 mg/ml) INJ IV ONE; -BUMETANIDE INJECTION 20 ML ONE
== END | disposition home or self-care (01) ==
LOC: Rad HDHVI 09:44
PROVIDERS: ATTEND Internal Medicine Cardiovascular Disease
DX: R06.02 Shortness of breath (principal); R42 Dizziness and giddiness
CPT/HCPCS: 93306

== ENCOUNTER → 2021-07-18 | Outpatient (CLI) | payer MEDICARE ==
[~2021-07-18] VITALS: Ht 30.5 cm; Wt 0.5 kg
[~2021-07-18] MED LIST changes: +CYANOCOBALAMIN (B-12) 1000 MCG/1 ML VIAL IM ONE; +CYANOCOBALAMIN (B-12) 1000 MCG/1 ML VIAL ONE; +FUROSEMIDE 100 MG/10ML VIAL IV ONE; +FUROSEMIDE 20 MG/2 ML VIAL ONE; +FUROSEMIDE INJECTION 10 ML ONE; +HYDR-4072 PO; +POTASSIUM CHL 20 Meq TABLET PO ONE; +TORS20TA19 PO; +TRAM50TA2 PO
[2021-07-18 11:00] VITALS: BP 118/69
[2021-07-18 11:49] VITALS: BP 142/67
== END | disposition home or self-care (01) ==
LOC: CHF HDHVI 11:02
PROVIDERS: ATTEND Internal Medicine Cardiovascular Disease
DX: I11.0 Hypertensive heart disease with heart failure (principal); I50.42 Chronic combined systolic (congestive) and diastolic (congestive) heart failure; I48.20 Chronic atrial fibrillation, unspecified; J44.9 Chronic obstructive pulmonary disease, unspecified; J96.10 Chronic respiratory failure, unspecified whether with hypoxia or hypercapnia; E78.5 Hyperlipidemia, unspecified; E03.9 Hypothyroidism, unspecified; M19.012 Primary osteoarthritis, left shoulder; Z79.899 Other long term (current) drug therapy
CPT/HCPCS: 36415; 80162; 96372; 96374; G0463; J1940; J3420

== ENCOUNTER → 2021-08-29 | Outpatient (CLI) | payer MEDICARE ==
[~2021-08-29] MED LIST changes: -CYANOCOBALAMIN (B-12) 1000 MCG/1 ML VIAL IM ONE; -CYANOCOBALAMIN (B-12) 1000 MCG/1 ML VIAL ONE; -FUROSEMIDE 100 MG/10ML VIAL IV ONE; -FUROSEMIDE 20 MG/2 ML VIAL ONE; -FUROSEMIDE INJECTION 10 ML ONE; -POTASSIUM CHL 20 Meq TABLET PO ONE
[2021-08-29 13:26] VITALS: BP 132/91
[2021-08-29 13:50] VITALS: BP 103/55
[2021-08-29 15:06] LABS: Basophils # (auto) 0 10 ^3/uL (0-0.2); Eosinophils # (auto) 0.1 10 ^3/uL (0-0.8); Lymphocytes # (auto) 1.2 10 ^3/uL (0.4-5.4); Lymphocytes % (auto) 37.6 % (10.0-50.0); Neutrophils # (auto) 1.4 10 ^3/uL (1.6-8.6); White Blood Cell 3.2 10^3/uL (4.4-10.8)
[2021-08-29 15:09] LABS: Basophils % (auto) 1.1 % (0.0-2.0); Eosinophils % (auto) 3.3 % (0.0-7.0); Hematocrit 29.1 % (36.0-46.0); Hemoglobin 9.1 g/dL (12.2-16.2); Mean Corpuscular Hgb Conc. 31.1 g/dL (32.0-36.0); Mean Corpuscular Volume 70.7 fL (80.0-100.0); Monocytes # (auto) 0.5 10 ^3/uL (0-1.3); Monocytes % (auto) 14.2 % (0.0-12.0); Neutrophils % (auto) 43.8 % (37.0-80.0); Nucleated Red Blood Cells % 0.1 %; Red Blood Cells 4.12 10^6/uL (4.0-5.20)
[2021-08-29 15:10] LABS: Red Cell Distribution Width 26.9 % (11.8-14.3)
[2021-08-29 15:22] LABS: Albumin 2.9 g/dL (3.4-5.0); BUN/Creatinine Ratio 19.4; Calcium 8.8 mg/dL (8.5-10.1); Magnesium 2.3 mg/dL (1.6-2.6); Potassium 4.3 mmol/L (3.5-5.1)
[2021-08-29 15:39] LABS: Bilirubin, Total 1.1 mg/dL (0.2-1.0); Total Protein 7.1 g/dL (6.4-8.2)
== END | disposition home or self-care (01) ==
LOC: Rad HDHVI 13:17
PROVIDERS: ATTEND Internal Medicine Cardiovascular Disease
DX: E11.9 Type 2 diabetes mellitus without complications (principal); D51.3 Other dietary vitamin B12 deficiency anemia; D64.9 Anemia, unspecified; E55.9 Vitamin D deficiency, unspecified; I10 Essential (primary) hypertension; R00.2 Palpitations; R53.1 Weakness; R30.0 Dysuria
CPT/HCPCS: 36415; 80053; 80061; 82306; 83036; 83735; 84443; 85025; G0463

== ENCOUNTER → 2021-09-11 | Outpatient (CLI) | payer MEDICARE ==
[2021-09-11 14:17] VITALS: BP 127/68
[2021-09-11 15:30] VITALS: BP 108/55
[2021-09-11 16:34] LABS: Albumin 2.6 g/dL (3.4-5.0); Calcium 8.4 mg/dL (8.5-10.1); Magnesium 2.2 mg/dL (1.6-2.6); Potassium 4.2 mmol/L (3.5-5.1)
[2021-09-11 16:37] LABS: BUN/Creatinine Ratio 22.9; Bilirubin, Total 1.2 mg/dL (0.2-1.0); Total Protein 6.6 g/dL (6.4-8.2)
[2021-09-11 16:38] LABS: Basophils # (auto) 0.1 10 ^3/uL (0-0.2); Basophils % (auto) 1.9 % (0.0-2.0); Eosinophils # (auto) 0.2 10 ^3/uL (0-0.8); Eosinophils % (auto) 6.4 % (0.0-7.0); Hematocrit 26.9 % (36.0-46.0); Hemoglobin 8.4 g/dL (12.2-16.2); Lymphocytes # (auto) 0.8 10 ^3/uL (0.4-5.4); Lymphocytes % (auto) 28.7 % (10.0-50.0); Mean Corpuscular Hemoglobin 22.1 pg (28.0-32.0); Mean Corpuscular Hgb Conc. 31.1 g/dL (32.0-36.0); Monocytes # (auto) 0.3 10 ^3/uL (0-1.3); Neutrophils # (auto) 1.4 10 ^3/uL (1.6-8.6); Nucleated Red Blood Cells % 0.2 %; Red Blood Cells 3.79 10^6/uL (4.0-5.20); White Blood Cell 2.7 10^3/uL (4.4-10.8)
[2021-09-11 16:39] LABS: Red Cell Distribution Width 24.8 % (11.8-14.3)
== END | disposition home or self-care (01) ==
LOC: CHF HDHVI 14:16
PROVIDERS: ATTEND Internal Medicine Cardiovascular Disease
DX: I50.23 Acute on chronic systolic (congestive) heart failure (principal)
CPT/HCPCS: 36415; 80053; 80162; 83735; 83880; 85025; G0463